=== PATIENT | female | born 1955 | race Caucasian/White ===

== ENCOUNTER 2017-07-04 11:21 | Day surgery (SDC) | payer OTHER ==
[~2017-07-04 11:21] MED LIST: Buffered Lidocaine 0.9% SYRIN* 5 ML/SYR SYRINGE INTRADERM ONE
[2017-07-04] MEDS ORDERED: Buffered Lidocaine 0.9% SYRIN* 5 ML/SYR SYRINGE ONE (11:25)
[2017-07-04] MEDS ORDERED: fentaNYL* 50 MCG/ML 2 ML VIAL (100 MCG VIAL) ONE (13:30)
[2017-07-04] MEDS ORDERED: Bupivacaine 0.25% SDV* 30 ML ONE (13:30)
[2017-07-04] MEDS ORDERED: Midazolam* 1 MG/ML 2 ML VIAL (2 MG) ONE (13:30)
[2017-07-04] MEDS ORDERED: Propofol* 10 MG/ML 20 ML BTL IV PUSH ONE (13:33)
[2017-07-04] MEDS ORDERED: Lidocaine 2% PF * 5 ML VIAL ONE (13:33)
[2017-07-04 14:44] VITALS: BP 126/82
--- NOTE | 2017-07-05 09:06 | OP ---
DATE OF OPERATION: 07/04/17 [facility] DATE OF : 57 SURGEON: Joe Cdoy MD [facility] COORDINATOR: JENNIFER Langley ANESTHESIOLOGIST: Dr. Navarro Neumann. ANESTHESIA: Local MAC. PRE-OP DIAGNOSIS: Right De Quervain's tenosynovitis. POST-OP DIAGNOSIS: Right De Quervain's tenosynovitis. OPERATIVE PROCEDURE: Right wrist De Quervain's release. INDICATIONS: Marie has had pretty significant pain related to De Quervain's tendinitis. We had talked about risks and benefits, she had wanted to proceed. ESTIMATED BLOOD LOSS: 2 mL. COMPLICATIONS: None. FINDINGS: As expected. DESCRIPTION OF PROCEDURE: Marie was seen in the preoperative holding area. The correct site, side, and procedure were identified. They came back to the operating room where the arm was prepped and draped in the usual fashion. A time-out was performed. I began by making a 2 cm transverse incision just proximal to the radial styloid. This was after the arm was exsanguinated with the Esmarch and the tourniquet inflated to 250 mmHg. Full-thickness flaps were raised right off the tendon sheath. The sensory nerve was gently retracted. The tendon sheath was incised longitudinally in line with the tendons on the dorsal aspect of the sheath. The release of the sheath was continued proximally and distally with the tenotomy scissors. There was an accessory compartment at the septum, where the accessory compartment was excised. I performed a slight tenosynovectomy as there was some tenosynovitis about the tendons. Once everything was nice and clean, we irrigated out the wound. Skin was closed with 3-0 Monocryl suture and Steri-Strips. I had infiltrated the wound with 0.25% plain Marcaine prior to making skin incision. The tourniquet was deflated and the hand pinked up immediately. Wound was dressed with 4x4s and francis bandage. [id number]/[facility] #: [id number] MTDD
== END 2017-07-04 14:43 | disposition home or self-care (01) ==
LOC: OR 11:21
PROVIDERS: ATTEND Orthopaedic Surgery Hand Surgery
DX: M65.4 Radial styloid tenosynovitis [de Quervain] (principal); M18.11 Unilateral primary osteoarthritis of first carpometacarpal joint, right hand; E78.5 Hyperlipidemia, unspecified; I10 Essential (primary) hypertension; M67.431 Ganglion, right wrist; Z87.891 Personal history of nicotine dependence; Z85.828 Personal history of other malignant neoplasm of skin
CPT/HCPCS: J2250; J2704; J3010

== ENCOUNTER 2017-09-02 12:45 | Emergency (ER) | payer OTHER ==
[2017-09-02] MEDS ORDERED: Acetaminophen TAB* 325 MG PO ONE (13:57)
--- NOTE | 2017-09-02 15:25 | RAD ---
INDICATION: Right rib injury. Fall. Pain COMPARISON: Chest x-ray April 20, 2015 TECHNIQUE: Multiple views of the ribs were obtained. FINDINGS: Bones: There is no evidence of acute rib fracture. LUNGS: The lungs are clear. There is no pneumothorax. Pleural spaces: There is no evidence of hemothorax. Other: None IMPRESSION: NO ACUTE RIB FRACTURE
--- NOTE | 2017-09-02 15:48 | ED ---
Adult Trauma - HPI Summary HPI Summary: Patient here with slip and fall earlier today. Reports she was walking on the icy sidewalk and lost her footing on the edge of the curb, fell onto her right side. Has rib pain here now which is worse with cough and deep breath. She denies numbness tingling weakness in her extremities or elsewhere. She also denies head injury, new neck pain, headache, nausea, photophobia, change in vision, nausea, vomiting. She is breathing well as long as she doesn't take a deep breath. She denies use of anticoagulants. Other than mild hypertension for which she treats with lisinopril, no other medical conditions to report. - History of Current Complaint Chief Complaint: EDChestWallPain Stated Complaint: FLANK PAIN Time Seen by Provider: 09/02/17 12:55 Hx Obtained From: Patient Pain Intensity: 7 - Allergy/Home Medications Allergies/Adverse Reactions: Allergies Allergy/AdvReac Type Severity Reaction Status Date / Time No Known Allergies Allergy Verified 06/29/17 12:34 PMH/Surg Hx/FS Hx/Imm Hx Previously Healthy: Yes Endocrine/Hematology History: Denies: Hx Anticoagulant Therapy, Hx Blood Disorders, Hx Diabetes, Hx Sickle Cell Disease, Hx Unexplained Bleeding Cardiovascular History: Reports: Hx Hypertension - takes lisinopril Denies: Hx Pacemaker/ICD Respiratory History: Denies: Hx Asthma History: Denies: Hx Dialysis, Hx Renal Disease Musculoskeletal History: Reports: Hx Arthritis - KNEES AND WRISTS, Hx Tendonitis - POSSIBLY RIGHT WRIST Denies: Hx Osteoporosis Sensory History: Reports: Hx Contacts or Glasses - READERS Denies: Hx Hearing Aid Opthamlomology History: Reports: Hx Contacts or Glasses - READERS Psychiatric History: Denies: Hx Panic Disorder - Cancer History Cancer Type, 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 Hx Anesthesia Reactions: Yes - [id number]- GAS FOR ANESTHESIA- NAUSEA Infectious Disease History: No Infectious Disease History: Denies: Traveled Outside the [place] in Last 30 Days - Family History Known Family History: Positive: None - Social History Occupation: Employed Full-time Lives: With Family Alcohol Use: None Hx Substance Use: No Substance Use Type: Reports: None Hx Tobacco Use: Yes - not currently Smoking Status (MU): Former Smoker Amount Used/How Often: UP TO 1 1/2 PPD X 20 YEARS Have You Smoked in the Last Year: No Review of Systems Constitutional: Negative Eyes: Negative ENT: Negative Cardiovascular: Negative Respiratory: Other - Rt side rib pain w/ cough, deep breath Gastrointestinal: Negative Positive: no symptoms reported Musculoskeletal: Negative Skin: Negative Neurological: Negative Psychological: Normal All Other Systems Reviewed And Are Negative: Yes Physical Exam Triage Information Reviewed: Yes Vital Signs On Initial Exam: Initial Vitals Temp Pulse Resp BP Pulse Ox 98 F 95 18 139/88 95 09/02/17 12:53 09/02/17 12:53 09/02/17 12:53 09/02/17 12:53 09/02/17 12:53 Vital Signs Reviewed: Yes Appearance: Positive: Well-Appearing, No Pain Distress - at rest - pain w/ movement of Rt arm away from body in rib area, Obese Skin: Positive: Warm, Skin Color Reflects Adequate Perfusion, Dry - No erythema or ecchymosis over affected areas, no skin breakdown Head/Face: Positive: Normal Head/Face Inspection Eyes: Positive: Normal, EOMI, RADHA - No photophobia ENT: Positive: Normal ENT inspection, Hearing grossly normal, Pharynx normal Dental: Negative: Dental Fracture @ Neck: Positive: Supple, Nontender Respiratory/Lung Sounds: Positive: Clear to Auscultation, Breath Sounds Present - No flail chest, no paradoxical chest movements - patient does report pain with deep breath on right side. Negative: Decreased Breath Sounds, Subcutaneous Emphysema, Stridor, Tracheal Deviation, Wheezes, Unable to speak in full sentences, Fatigue Cardiovascular: Positive: Normal, RRR, Pulses are Symmetrical in both Upper and Lower Extremities Abdomen Description: Positive: Nontender, Soft Bowel Sounds: Positive: Present Musculoskeletal: Positive: Strength/ROM Intact, Pain @ - Patient reports pain in right ribs with right shoulder abduction - full range of motion of phalanges wrist and elbow otherwise Neurological: Positive: Normal, Sensory/Motor Intact, Alert, Oriented to Person Place, Time, CN Intact II-III Psychiatric: Positive: Anxious Diagnostics - Vital Signs Vital Signs Temp Pulse Resp BP Pulse Ox 09/02/17 12:53 98 F 95 18 139/88 95 - Laboratory Lab Statement: Any lab studies that have been ordered have been reviewed, and results considered in the medical decision making process. Re-Evaluation - Re-Evaluation First Eval Change: Improved - Patient reports she is less sore and easier to move her arm status post acetaminophen Adult Trauma Course/Dx - Course Course Of Treatment: patient presents with mechanical fall earlier today landing on right side. She reports rib pain with deep breath and cough. Rib series report and the case no acute findings. Patient reports improvement of symptoms with acetaminophen. Will add Lidoderm pain patch in an effort to help over the next 12 hours if she cannot take ibuprofen due to her treatment of hypertension with lisinopril. Advised to implement supportive care and follow- up with PCP. Will return to emergency department if danger signs or symptoms present sooner. - Diagnoses Provider Diagnoses: Contusion of rib on right side, Fall from slipping on ice Discharge - Discharge Plan Condition: Stable Disposition: HOME Patient Education Materials: Rib Contusion (ED), Fall Prevention (ED) Forms: *Work Release Referrals: Mode Ferrer MD [Primary Care Provider] - Additional Instructions: You appear to have a right rib contusion. This may continue to be sore over the next few weeks. You may treat with ice alternating with heat and gentle stretches of your right arm at the shoulder. You may take acetaminophen for pain and use topical pain patches such as salonpas which may be purchased over- the-counter. Please follow up with her primary care physician next week. Call today to schedule. * If he developed fevers chills shortness of breath worsening of pain numbness tingling or weakness in your arm please return to the emergency department
[2017-09-02] MEDS ORDERED: Lidocaine PATCH 5%* 1 PATCH TRANSDERM ONE (15:50)
[2017-09-02 16:15] VITALS: BP 130/72
[2017-09-03] MEDS ORDERED: Lidocaine PATCH 5%* 1 PATCH TRANSDERM ONE (15:43)
== END 2017-09-02 16:14 | disposition home or self-care (01) ==
LOC: ED 12:45
DX: S20.211A Contusion of right front wall of thorax, initial encounter (principal); W00.0XXA Fall on same level due to ice and snow, initial encounter; Y93.01 Activity, walking, marching and hiking; Y92.480 Sidewalk as the place of occurrence of the external cause; Z87.891 Personal history of nicotine dependence
CPT/HCPCS: 99282; A9270-GY

== ENCOUNTER 2017-09-07 08:54 | Emergency (ER) | payer OTHER ==
[2017-09-07 09:00] VITALS: BP 170/115
[2017-09-07] MEDS ORDERED: Ketorolac INJ* 60 MG/2 ML VIAL IM ONE (09:30)
[2017-09-07] MEDS ORDERED: HYDROcodone/ACETAMIN 5-325 MG* 1 TAB PO ONE (09:30)
--- NOTE | 2017-09-07 10:23 | RAD ---
INDICATION: RIGHT axillary pain radiating to the back post fall 5 days ago. COMPARISON: April 28, 2015 TECHNIQUE: Dual energy PA and routine lateral views of the chest were obtained. REPORT: Trace fluid in the RIGHT minor fissure. The pleural spaces are otherwise clear. Negative for pneumothorax. Minimal prominence of the basilar interstitial markings. Negative for cardiomegaly. Mildly tortuous descending thoracic aorta. Unremarkable central pulmonary vasculature. No thoracic fractures evident. Multilevel mild thoracic degenerative spondylosis. Unremarkable soft tissue contours accounting for body habitus. Gallbladder fossa level surgical clips. IMPRESSION: Trace fluid in the RIGHT minor fissure. No visualized fracture or pneumothorax.
--- NOTE | 2017-09-07 17:40 | ED ---
Samira Felipe Nilda, scribed for Alan Rodriguez MD on 09/07/17 at 0934 . HPI Chest Pain - HPI Summary HPI Summary: This patient is a 62 year old F presenting to [facility] with a chief complaint of constant right rib pain that radiates to back since falling forward and landing on her chest a couple days ago. Pt states she went to ED and imaging was negative for fracture. The patient rates the pain 10/10 in severity. Symptoms aggravated by movement and deep inspiration, and alleviated by recumbent position. Patient reports cough and dyspnea secondary to pain. She denies N/V. Patient states she slept sitting up last night due to pain. - History of Current Complaint Chief Complaint: EDChestWallPain Time Seen by Provider: 09/07/17 09:22 Hx Obtained From: Patient Onset/Duration: Started Days Ago, Still Present Timing: Constant Current Severity: Severe Pain Intensity: 10 Chest Pain Location: Right Lateral Chest Pain Radiates: Yes Chest Pain Radiates To:: Back Aggravating Factor(s): Movement, Deep Breaths Alleviating Factor(s): Other: - recumbent position Associated Signs and Symptoms: Positive: Other: - cough and dyspnea secondary to pain. She denies N/V - Allergy/Home Medications Allergies/Adverse Reactions: Allergies Allergy/AdvReac Type Severity Reaction Status Date / Time No Known Allergies Allergy Verified 06/29/17 12:34 PMH/Surg Hx/FS Hx/Imm Hx Endocrine/Hematology History: Denies: Hx Anticoagulant Therapy, Hx Blood Disorders, Hx Diabetes, Hx Sickle Cell Disease, Hx Unexplained Bleeding Cardiovascular History: Reports: Hx Hypertension - takes lisinopril Denies: Hx Pacemaker/ICD Respiratory History: Denies: Hx Asthma History: Denies: Hx Dialysis, Hx Renal Disease Musculoskeletal History: Reports: Hx Arthritis - KNEES AND WRISTS, Hx Tendonitis - POSSIBLY RIGHT WRIST Denies: Hx Osteoporosis Sensory History: Reports: Hx Contacts or Glasses - READERS Denies: Hx Hearing Aid Opthamlomology History: Reports: Hx Contacts or Glasses - READERS Psychiatric History: Denies: Hx Panic Disorder - Cancer History Cancer Type, 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 Hx Anesthesia Reactions: Yes - [id number]- GAS FOR ANESTHESIA- NAUSEA Infectious Disease History: No Infectious Disease History: Denies: Traveled Outside the [place] in Last 30 Days - Family History Known Family History: Positive: None - reviewed and noncontributory - Social History Alcohol Use: None Hx Substance Use: No Substance Use Type: Reports: None Hx Tobacco Use: Yes - not currently Smoking Status (MU): Former Smoker Amount Used/How Often: UP TO 1 1/2 PPD X 20 YEARS Have You Smoked in the Last Year: No Review of Systems Positive: Cough, Other - dypnea secondary to pain Negative: Vomiting, Nausea Positive: Other - right rib pain that radiates to back All Other Systems Reviewed And Are Negative: Yes Physical Exam - Summary Physical Exam Summary: VITAL SIGNS: Reviewed. GENERAL: Patient is a well-developed and nourished female who is lying comfortable in the stretcher. Patient is not in any acute respiratory distress. HEAD AND FACE: No signs of trauma. No ecchymosis, hematomas or skull depressions. No sinus tenderness. EYES: PERRLA, EOMI x 2, No injected conjunctiva, no nystagmus. EARS: Hearing grossly intact. Ear canals and tympanic membranes are within normal limits. MOUTH: Oropharynx within normal limits. NECK: Supple, trachea is midline, no adenopathy, no JVD, no carotid bruit, no c- spine tenderness, neck with full ROM. CHEST: Symmetric, Tender right rib cage area around the mid axillary line btwn 4ths and 5th ribs LUNGS: Clear to auscultation bilaterally. No wheezing or crackles. CVS: Regular rate and rhythm, S1 and S2 present, no murmurs or gallops appreciated. ABDOMEN: Soft, non-tender. No signs of distention. No rebound no guarding, and no masses palpated. Bowel sounds are normal. EXTREMITIES: FROM in all major joints, no edema, no cyanosis or clubbing. NEURO: Alert and oriented x 3. No acute neurological deficits. Speech is normal and follows commands. SKIN: Dry and warm Triage Information Reviewed: Yes Vital Signs On Initial Exam: Initial Vitals Temp Pulse Resp BP Pulse Ox 97.5 F 137 22 170/115 94 09/07/17 08:56 09/07/17 08:56 09/07/17 08:56 09/07/17 08:56 09/07/17 08:56 Vital Signs Reviewed: Yes Diagnostics - Vital Signs Vital Signs Temp Pulse Resp BP Pulse Ox 09/07/17 08:56 97.5 F 137 22 170/115 94 - Laboratory Lab Statement: Any lab studies that have been ordered have been reviewed, and results considered in the medical decision making process. - Radiology CXR Radiology Interpretation Completed By: Radiologist - CXR, per radiologist, reveals trace fluid in the RIGHT minor fissure. No visualized fracture or pneumothorax. Dr. Rodriguez has reviewed this radiology report. Chest Pain Course/Dx - Course Assessment/Plan: This patient is a 62 year old F presenting to [facility] with a chief complaint of constant right rib pain that radiates to back since falling forward and landing on her chest a couple days ago. Pt states she went to ED and imaging was negative for fracture. The patient rates the pain 10/10 in severity. Symptoms aggravated by movement and deep inspiration, and alleviated by recumbent position. Patient reports cough and dyspnea secondary to pain. She denies N/V. Patient states she slept sitting up last night due to pain. CXR, per radiologist, reveals trace fluid in the RIGHT minor fissure. No visualized fracture or pneumothorax. Dr. Rodriguez has reviewed this radiology report. In the ED course, the pt was given [place] and Toradol for the pain and their symptoms improved. XR negative for acute pathology. I discussed findings with the pt and need to follow up with PCP. Pt was given an incentive spirometer. - Chest Pain Differential Diagnosis/HQI/PQRI: Chest Wall, Lower Respiratory Infection - Diagnoses Provider Diagnoses: Rib pain on right side Discharge - Discharge Plan Condition: Stable Disposition: HOME Prescriptions: Hydrocodone/Acetaminophen [Atoka 5-325 mg] 1 tab PO Q6H PRN #12 tab MDD 4 PRN Reason: Pain Ibuprofen TAB* [Motrin TAB* 600 MG] 600 mg PO Q8H PRN #30 tab PRN Reason: Pain Patient Education Materials: Rib Contusion (ED) Referrals: Mode Ferrer MD [Primary Care Provider] - 3 Days Additional Instructions: Use incentive spirometer. RETURN TO THE EMERGENCY DEPARTMENT FOR CHANGING OR WORSENING SYMPTOMS. The documentation as recorded by the Samira mandujano Nilda accurately reflects the service I personally performed and the decisions made by Michael gonzales Walter, MD.
== END 2017-09-07 12:15 | disposition home or self-care (01) ==
LOC: ED 08:54
DX: R07.81 Pleurodynia (principal); R05 Cough; R06.00 Dyspnea, unspecified
CPT/HCPCS: 71046; 96372; 99282; J1885

== ENCOUNTER 2018-10-14 22:59 | Emergency (ER) | payer OTHER ==
--- OUTSIDE RECORDS SUMMARY | 2018-10-14 23:16 | XMS REPORT | Continuity of Care Document ---
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 Group Name: [place] [address] PayID: [id number] Advance Directives Description No Information Available Problems Date Description Provider Status Onset: 06/04/2015 Backache Mode Ferrer M.D. Active Onset: 04/29/2015 Chest pain Mode Ferrer M.D. Active Onset: 11/23/2013 Essential hypertension Judith Swan Active Onset: 05/25/2011 Low back pain Cy Pena M.D. 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 [employer] Tobacco Use Start: Unknown End: Former Cigarette Smoker Unknown ETOH Use Rare Tobacco Use Start: Unknown End: Patient is a former Unknown smoker Exercise Exercises rarely, wants Type/Frequency Current to start walking Allergies, Adverse Reactions, Alerts Date Description Reaction Status Severity Comments 06/05/2015 Methylprednisolone severe headache Active 05/25/2011 NKDA Inactive Medications Medication Date Status Form Strength Qnty SIG Indications Ordering Provider Advair Diskus 10/13 Active Aerosol 100-50mcg 60units 1 puff R05 /Dose twice a Lili, day, MAILROOM MESSENGER rinse mouth and throat after use Benzonatate 10/13 Active Capsules 100mg 45caps 1 by R0 mouth Lili, three MAILROOM MESSENGER times a day as needed coughing Fluticasone 10/13 Active Suspension 50mcg/Act 1bottle 2 sprays Propionate each Lili, nostril MAILROOM MESSENGER daily Ibuprofen 10/13 Active Tablets 800mg 60tabs take 1 .03 tablet Lili, by mouth MAILROOM MESSENGER two times daily with food maximum daily dose of 2 per day Lisinopril-Wacissa 04/09 Active Tablets 10-12.5mg 90tabs take 1 I10 Emily chlorothiazide tablet Evelio, by mouth MAILROOM MESSENGER one time daily Ibuprofen Active Tablets 200mg 1 po bid prn Tramadol HCL 09/15 Hx Tablets 50mg 60tabs take one M94.0 Mode . tablet Nabil, - by mouth M.D. 10/13 every hours as needed for pain -- maximum daily dose of 4 per day Note No Work 08/24 Hx marie A09 Mode A. is to Nabil, - return M.D. 04/26 to work /2017 on 10/03/17 with no restrict ions Ranitidine HCL 08/24 Hx Tablets 150mg 45tabs take 1 A09 tablet Evelio, - by mouth MAILROOM MESSENGER 10/13 one two times daily Thumb Spica 04/13 Hx 1units 1 large M65.4 Mode AEllis Splint or Chris Ferrer medium M.D. 05/04 wear except to sleep Physical Therapy 04/13 Hx treatmen M65.4 Mode AEllis /2016 t and Nabil - evaluati M.D. 04/25 on wrist pain Note For Work 10/08 Hx November 724.2 Mode A. return Nabil, - to work M.D. 10/0910/13/15 Note For Work 09/24 Hx please M54.5 Mode A. excuse Nabil, - from M.D. 10/05 work 09/18/15 until further notice. Gabapentin 06/05 Hx Capsules 100mg 90caps take one M54.9 Mode A. capsule Nabil, - by mouth M.D. 09/20 times a day Methylprednisolo 06/04 Hx Tablets 4mg 1pack take as M54.9 Mode AEllis ne (Abdulaziz) /2014 directed Nabil, - M.D. 06/05 Physical Therapy 06/04 Hx treatmen M54.9 Mode AEllis t and Nabil, - evaluati M.D. 06/16 on back pain Calcipotriene/Be 01/08 Hx Ointment 0.005-0.0 60gm apply 782.9 oMde Mcgovern tamethasone 64% once a [place], Dipropionate - day as M.D. 04/29 Meclizine HCL 11/23 Hx Tablets 12.5mg 30tabs take 1-2 386.11 tid prn Juan, - for Afnp-C 12/02 dizzines s Skelaxin 07/06 Hx Tablets 800mg 30tabs 1 by 724.3 Christiano Harris /2012 mouth M.D. - three 11/23 times day as needed Hydrocodone/Acet 07/06 Hx Tablets 5-325mg 30tabs 1 by 724.3 Crhistiano Harris aminophen /2012 mouth M.D. - three 11/23 times a day as needed pain Fluocinolone 11/21 Hx Cream 0.025% 15gm apply to 782.9 Kirsten Acetonide affected Juan - areas Afnp-C 02/16 right leg daily x 2 weeks Pantoprazole 01/[address] 40mg 30tabs 1 po qd 530.81 Emily Sodium /2011 Evelio, - MAILROOM MESSENGER 05/04 Naproxen 05/25 Hx Tablets 500mg 30tabs 1 po bid 724.2 Benoit . prn Chris Pena M.D. 07/23 Note For Work 05/25 Hx please 724.2 Mode A. excuse Nabil, - from M.D. 05/0505/05/12 Vicodin 10 Hx Tablets 5-500mg 40tabs 1 to 2 724.2 Benoit A. po every Becky, - six M.D. prn. Cyclobenzaprine 05/25 Hx Tablets 10mg 10tabs take 1 724.2 Benoit A. HCL tablet Becky, - by mouth M.D. 07/23 evening if needed for muscle spasm Lisinopril/Wacissa 04/22 Hx Tablets 10-12.5mg 90tabs Take one 401.9 thi tablet Evelio, - by mouth MAILROOM MESSENGER 04/09 one time daily Nexium 08/05 Hx Capsules 40mg samples [address] Fraser, - MAILROOM MESSENGER 04/22 Kapidex 07/22 Hx Capsules 60mg samples [address] Fraser, - MAILROOM MESSENGER 08/05 Lisinopril/Wacissa 06/17 Hx Tablets 20-12.5mg 30tabs 1 po qd 401.9 Emily chlorothiazide Evelio, - MAILROOM MESSENGER 04/22 Lisinopril/Wacissa 04/08 Hx Tablets 10-12.5mg 30tabs 1 po qd 401.9 Emily chlorothiazide Evelio - MAILROOM MESSENGER 06/17 Physical Therapy 08/29 Hx Evaluate 719.47 Mode A. And Nabil - Treat M.DEllis 04/08 Ankle Proprioc eptive Therapy. Relafen 08/27 Hx Tablets 500mg 30tabs 1 po bid 719.47 Mode A. prn pain Chris Ferrer M.D. 09/06 Lisinopril 01/09 Hx Tablets 10mg 30tabs 1 po qd5 401.9 Evelio - MAILROOM MESSENGER 04/08 Hydrochlorothiaz 01/09 Hx Tablets 25mg 30tabs 1 po qd 401.9 Emily jacquelyn Evelio, - MAILROOM MESSENGER 04/08 Pravastatin 01/09 Hx Tablets 20mg 30tabs 1po qd 272.4 Emily Sodium Evelio, - MAILROOM MESSENGER 04/08 Immunizations Description No Information Available Vital Signs Date Vital Result Comment 10/13/2018 9:35am BP Systolic 144 mmHg BP Diastolic 78 mmHg Heart Rate 80 /min Body Temperature 97.7 F Respiratory Rate 22 /min O2 % BldC Oximetry 98 % Ra Weight 261.00 lb 04/26/2018 10:57am BP Systolic 112 mmHg BP Diastolic 76 mmHg Heart Rate 84 /min Body Temperature 97.2 F Respiratory Rate 17 /min Height 62.5 inches 5'2.50" Weight 256.00 lb BMI (Body Mass Index) 46.1 kg/m2 09/15/2017 5:22pm BP Systolic 138 mmHg BP Diastolic 80 mmHg Heart Rate 76 /min Body Temperature 99.1 F Respiratory Rate 16 /min O2 % BldC Oximetry 97 % Height 62.5 inches 5'2.50" Weight 242.00 lb BMI (Body Mass Index) 43.6 kg/m2 08/24/2017 3:55pm BP Systolic 124 mmHg BP Diastolic 82 mmHg Heart Rate 68 /min Body Temperature 98.4 F Respiratory Rate 18 /min Height 62.5 inches 5'2.50" Weight 253.00 lb BMI (Body Mass Index) 45.5 kg/m2 05/16/2017 2:57pm BP Systolic 140 mmHg BP Diastolic 80 mmHg Heart Rate 88 /min Body Temperature 98.1 F Respiratory Rate 16 /min Height 62.5 inches 5'2.50" Weight 249.12 lb BMI (Body Mass Index) 44.8 kg/m2 04/13/2017 4:10pm BP Systolic 130 mmHg BP Diastolic 70 mmHg Heart Rate 74 /min Body Temperature 97.9 F Height 62.5 inches 5'2.50" Weight 248.00 lb BMI (Body Mass Index) 44.6 kg/m2 06/16/2016 1:24pm BP Systolic 130 mmHg BP Diastolic 80 mmHg Heart Rate 96 /min Body Temperature 98.5 F Respiratory Rate 16 /min Height 62.5 inches 5'2.50" Weight 250.00 lb BMI (Body Mass Index) 45.0 kg/m2 03/23/2016 4:36pm BP Systolic 158 mmHg BP Diastolic 90 mmHg Heart Rate 88 /min Body Temperature 97.5 F Respiratory Rate 18 /min Height 62.5 inches 5'2.50" Weight 248.00 lb BMI (Body Mass Index) 44.6 kg/m2 10/22/2015 9:57am BP Systolic 150 mmHg BP Diastolic 80 mmHg Heart Rate 116 /min Body Temperature 98.3 F Respiratory Rate 16 /min Height 62.5 inches 5'2.50" Weight 254.00 lb BMI (Body Mass Index) 45.7 kg/m2 10/06/2015 10:41am BP Systolic 150 mmHg BP Diastolic 100 mmHg Heart Rate 88 /min Body Temperature 98.4 F Respiratory Rate 16 /min Height 62.5 inches 5'2.50" Weight 250.00 lb BMI (Body Mass Index) 45.0 kg/m2 09/20/2015 10:08am BP Systolic 166 mmHg BP Diastolic 70 mmHg Heart Rate 96 /min Body Temperature 98.7 F Respiratory Rate 16 /min Height 62.5 inches 5'2.50" Weight 251.25 lb BMI (Body Mass Index) 45.2 kg/m2 06/04/2015 11:27am BP Systolic 140 mmHg BP Diastolic 80 mmHg Heart Rate 92 /min Body Temperature 97.6 F Respiratory Rate 20 /min Height 62.5 inches 5'2.50" Weight 248.00 lb BMI (Body Mass Index) 44.6 kg/m2 04/29/2015 11:02am BP Systolic 144 mmHg BP Diastolic 84 mmHg Heart Rate 84 /min Body Temperature 97.8 F Respiratory Rate 16 /min Height 62.5 inches 5'2.50" Weight 249.00 lb BMI (Body Mass Index) 44.8 kg/m2 09/09/2014 9:10am BP Systolic 130 mmHg BP Diastolic 80 mmHg Heart Rate 76 /min Body Temperature 97.3 F Respiratory Rate 16 /min Height 62.5 inches 5'2.50" Weight 252.00 lb BMI (Body Mass Index) 45.4 kg/m2 06/18/2014 11:40am BP Systolic 142 mmHg BP Diastolic 88 mmHg Heart Rate 84 /min Body Temperature 97.1 F Respiratory Rate 16 /min Height 62.5 inches 5'2.50" Weight 248.00 lb BMI (Body Mass Index) 44.6 kg/m2 01/08/2014 8:58am BP Systolic 152 mmHg BP Diastolic 96 mmHg Heart Rate 84 /min Body Temperature 97.2 F Respiratory Rate 16 /min Height 62.5 inches 5'2.50" Weight 244.00 lb BMI (Body Mass Index) 43.9 kg/m2 Right Visual Acuity Distance 20/30 Left Visual Acuity Distance 20/25 11/23/2013 8:09am BP Systolic 140 mmHg BP Diastolic 70 mmHg Heart Rate 88 /min Body Temperature 97.3 F Respiratory Rate 16 /min Height 62.5 inches 5'2.50" Weight 244.00 lb BMI (Body Mass Index) 43.9 kg/m2 07/06/2013 10:51am BP Systolic 146 mmHg BP Diastolic 90 mmHg Heart Rate 112 /min Body Temperature 96.9 F Height 62.5 inches 5'2.50" Weight 237.50 lb BMI (Body Mass Index) 42.7 kg/m2 02/02/2013 8:40am BP Systolic 130 mmHg BP Diastolic 70 mmHg Heart Rate 72 /min Body Temperature 96.9 F Respiratory Rate 18 /min Height 62.5 inches 5'2.50" Weight 236.00 lb BMI (Body Mass Index) 42.5 kg/m2 11/21/2012 3:54pm BP Systolic 120 mmHg BP Diastolic 90 mmHg Heart Rate 72 /min Body Temperature 98.2 F Respiratory Rate 16 /min Height 62.5 inches 5'2.50" Weight 238.00 lb BMI (Body Mass Index) 42.8 kg/m2 05/04/2012 7:01pm BP Systolic 124 mmHg BP Diastolic 90 mmHg Heart Rate 102 /min Body Temperature 98.9 F Height 62.5 inches 5'2.50" Weight 231.00 lb BMI (Body Mass Index) 41.6 kg/m2 01/24/2012 7:18pm BP Systolic 120 mmHg BP Diastolic 80 mmHg Heart Rate 80 /min Body Temperature 98.2 F Height 62.5 inches 5'2.50" Weight 235.00 lb BMI (Body Mass Index) 42.3 kg/m2 07/23/2011 11:26am BP Systolic 124 mmHg BP Diastolic 90 mmHg Heart Rate 84 /min Body Temperature 97.7 F Height 62.5 inches 5'2.50" Weight 226.00 lb BMI (Body Mass Index) 40.7 kg/m2 05/31/2011 11:08am BP Systolic 120 mmHg BP Diastolic 80 mmHg Heart Rate 80 /min Body Temperature 97.8 F Respiratory Rate 16 /min Height 62.5 inches 5'2.50" Weight 228.00 lb BMI (Body Mass Index) 41.0 kg/m2 05/25/2011 2:52pm BP Systolic 120 mmHg BP Diastolic 88 mmHg Heart Rate 80 /min Body Temperature 98.1 F Height 62.5 inches 5'2.50" Weight 226.00 lb BMI (Body Mass Index) 40.7 kg/m2 04/22/2011 4:24pm BP Systolic 144 mmHg BP Diastolic 102 mmHg Heart Rate 88 /min Body Temperature 97.9 F Height 62.5 inches 5'2.50" Weight 221.00 lb BMI (Body Mass Index) 39.8 kg/m2 08/05/2010 3:54pm BP Systolic 140 mmHg BP Diastolic 92 mmHg Heart Rate 72 /min Body Temperature 97.2 F Respiratory Rate 15 /min Height 62.5 inches 5'2.50" Weight 233.00 lb BMI (Body Mass Index) 41.9 kg/m2 07/22/2010 3:54pm BP Systolic 150 mmHg BP Diastolic 80 mmHg Heart Rate 90 /min Body Temperature 98.4 F Height 62.5 inches 5'2.50" Weight 227.00 lb BMI (Body Mass Index) 40.9 kg/m2 06/17/2010 4:20pm BP Systolic 142 mmHg BP Diastolic 90 mmHg Heart Rate 80 /min Body Temperature 98.4 F Respiratory Rate 16 /min Height 62.5 inches 5'2.50" Weight 224.00 lb BMI (Body Mass Index) 40.3 kg/m2 04/08/2010 2:08pm BP Systolic 150 mmHg BP Diastolic 100 mmHg Heart Rate 90 /min Body Temperature 98.1 F Height 62.5 inches 5'2.50" Weight 218.00 lb BMI (Body Mass Index) 39.2 kg/m2 08/27/2009 3:32pm BP Systolic 138 mmHg BP Diastolic 90 mmHg Heart Rate 80 /min Body Temperature 97.6 F Respiratory Rate 16 /min Height 62.5 inches 5'2.50" Weight 222.00 lb BMI (Body Mass Index) 40.0 kg/m2 02/06/2009 9:02am BP Systolic 110 mmHg BP Diastolic 84 mmHg Heart Rate 68 /min Body Temperature 98.8 F Weight 218.00 lb 01/09/2009 1:57pm BP Systolic 132 mmHg BP Diastolic 88 mmHg Heart Rate 76 /min Height 62.5 inches 5'2.50" Weight 215.00 lb BMI (Body Mass Index) 38.7 kg/m2 Results Test Date Facility Test Result H/L Range Note Laboratory test 04/26/2018 [facility] Lipase 34 U/L 14-72 1 finding [address] [place] [address] (607)- - Ua - Micro (Fma) 04/26/2018 [facility] Appearance clear (607)- - Color yellow Glucose, Urine (Fma/CMC/CTX) negative Bilirubin negative Ketones negative SP Grav 1.010 Blood negative PH 5.0 Protein negtative Urobil 0.2 Nitrite negative Leukocytes (Fma/CMC/Centrex) ssa negative WBC (Fma,Centrex) 8-10 RBC 0 Mucus (Fma/CBC/Centrex) small /Lpf Epith occ /Lpf Bacteria 1++ /Hpf Amorphous (Fma/CMC/Centrex) 0 /Lpf Crystals, Fluid (Fma/CMC/CTX) 0 Comprehensive Metabolic 04/26/2018 [facility] (a) Sodium 137 mEq/L 134-149 Prof Potassium 4.4 mEq/L 3.6-5.5 Chloride 100 mEq/L 94-112 Carbon Dioxide 23 mEq/L 21-32 Glucose 135 mg/dL High 70-105 BUN 14 mg/dL 6-26 Creatinine 0.9 mg/dL 0.6-1.4 BUN/Creat Ratio 15.6 CALC 8.0-36.0 Calcium 10.0 mg/dL 8.6-10.2 Total Protein 6.6 g/dL 6.4-8.3 Albumin 4.4 g/dL 3.8-5.5 Globulin 2.2 g/dL 2.0-4.8 A/G Ratio 2.0 CALC 0.6-2.3 Alk. Phosphatase 88 U/L 30-110 Alt (SGPT) 19 U/L 7-35 Ast (Sgot) 17 U/L 5-34 Total Bilirubin 0.5 mg/dL 0.2-1.3 GFR Non- >60 ml/min/1.73m^ >=60 GFR >60 ml/min/1.73m^ >=60 CBC Electronic Fma 04/26/2018 Tan Lia ([facility]) WBC 8.2 x10^3/UL 4.0- 10.0 RBC 5.03 x10^6/UL 3.93-6.00 HGB 15.3 g/dL 12.0-17.0 HCT 45 % 35-50 MCV 89.9 fL 80.0-95.0 MCH 30.4 pg 25.6-32.2 MCHC 33.8 g/dL 32.2-36.0 RDW-CV 12.8 % 11.6-14.4 PLT 240 x10^3/UL 163-400 MPV 9.6 fL 9.4-12.4 Johnie# 5.39 x10^3/UL 1.56-6.13 Lymph# 2.05 x10^3/UL 1.18-3.74 Cochran# 0.49 x10^3/UL 0.24-0.82 Eos # 0.2 x10^3/UL 0.0-0.5 Baso # 0.06 x10^3/UL 0.01-0.08 Johnie% 65.6 % 34.0-70.0 Lymph % 24.9 % 20.0-52.0 Cochran% 6.0 % 5.0-12.0 Eos% 2.2 % 0.7-7.0 Baso% 0.7 % 0.1-1.2 Laboratory test 04/26/2018 Tan Fitzgerald ([facility]) Amylase, Serum 76 U/L 20 -105 finding Laboratory test 08/27/2016 [facility] Surgical SEE RESULT 2, 3 finding Pathology BELOW Laboratory test 06/11/2016 [facility] Surgical SEE RESULT 4, 5 finding Pathology BELOW Laboratory test 04/28/2015 [facility] Troponin I 0.00 ng/mL N <0.03 6 finding Laboratory test 04/28/2015 [facility] TSH (Thyroid 3.24 ?IU/mL N 0.34-5.60 finding Stim Horm) Urinalysis 04/28/2015 [facility] Urine Color Straw N Profile Urine Appearance Cloudy N Urine Specific [place] 1.008 Low 1.010-1.030 Urine pH 5.0 N 5-9 Urine Urobilinogen Negative N Negative Urine Ketones Negative N Negative Urine Protein Negative N Negative Urine Leukocytes Negative N Negative Urine Blood Negative N Negative Urine Nitrite Negative N Negative Urine Bilirubin Negative N Negative Urine Glucose Negative N Negative CBC Auto Diff 04/28/2015 [facility] White Blood Count 11.5 10^3/uL High 4.8- 10.8 Red Blood Count 5.30 10^6/uL N 4.0-5.4 Hemoglobin 16.2 g/dL High 12.0-16.0 Hematocrit 49 % High 35-47 Mean Corpuscular Volume 92 fL N 80-97 Mean Corpuscular Hemoglobin 31 pg N 27-31 Mean Corpuscular HGB Conc 33 g/dL N 31-36 Red Cell Distribution Width 13 % N 10.5-15 Platelet Count 249 10^3/uL N 150-450 Mean Platelet Volume 8 um3 N 7.4-10.4 Abs Neutrophils 8.7 10^3/uL High 1.5-7.7 Abs Lymphocytes 1.8 10^3/uL N 1.0-4.8 Abs Monocytes 0.7 10^3/uL N 0-0.8 Abs Eosinophils 0.2 10^3/uL N 0-0.6 Abs Basophils 0.1 10^3/uL N 0-0.2 Abs Nucleated RBC 0.01 10^3/uL N Granulocyte % 75.8 % N 38-83 Lymphocyte % 15.9 % Low 25-47 Monocyte % 6.0 % N 1-9 Eosinophil % 1.4 % N 0-6 Basophil % 0.9 % N 0-2 Nucleated Red Blood Cells % 0.1 N Inr/Protime 04/28/2015 [facility] Inr 1.08 High 0.78-1.07 Laboratory test 04/28/2015 [facility] B Type Natriuretic 18 pg/mL N 7 finding Peptide Comp Metabolic Panel 04/28/2015 [facility] Sodium 132 mmol/L Low 133-145 Potassium 3.5 mmol/L N 3.5-5.0 Chloride 100 mmol/L Low 101-111 Co2 Carbon Dioxide 25 mmol/L N 22-32 Anion Gap 7 mmol/L N 2-11 Glucose 108 mg/dL High 70-100 Blood Urea Nitrogen 22 mg/dL N 6-24 Creatinine 0.95 mg/dL N 0.51-0.95 BUN/Creatinine Ratio 23.2 High 8-20 Calcium 10.5 mg/dL High 8.6-10.3 Total Protein 7.3 g/dL N 6.4-8.9 Albumin 4.4 g/dL N 3.2-5.2 Globulin 2.9 g/dL N 2-4 Albumin/Globulin Ratio 1.5 N 1-3 Total Bilirubin 0.40 mg/dL N 0.2-1.0 Alkaline Phosphatase 79 U/L N 34-104 Alt 15 U/L N 7-52 Ast 16 U/L N 13-39 Egfr Non- 60.2 N >60 Egfr 77.4 N >60 8 Laboratory test finding 04/28/2015 [facility] Magnesium 2.8 mg/dL High 1.9-2.7 Creatine Kinase 101 U/L N 10-223 Troponin I 0.00 ng/mL N <0.03 9 CKMB 04/28/2015 [facility] CKMB ng/mL 6.5 ng/mL High 0.6-6.3 Surgical 07/30/2014 [facility] S RUN DATE: 08/02/ <SEE NOTE> Complete Blood 06/18/2014 Maddox Lia (Fma) WBC 9.8 x10^3/UL High 3.6- 9.6 Count RBC 5.26 x10^6/UL 3.90-5.70 HGB 16.5 g/dL 12.1-17.2 HCT 49 % 36-50 MCV 92.0 fL 82.2-97.4 MCH 31.4 pg 27.6-33.3 MCHC 34.1 g/dL 33.0-35.5 RDW 12.1 % 11.6-13.7 PLT 256 x10^3/UL 150-400 MPV 7.2 fL Low 7.4-10.4 Gran # 6.9 x10^3/UL 1.5-7.2 Lymph# 2.6 x10^3/UL 0.7-4.9 Cochran# 0.3 x10^3/UL 0.1-0.9 Gran % 69.6 % 42.2-75.2 Lymph % 26.7 % 20.5-51.1 Cochran% 3.7 % 1.7-9.3 Celiac Panel 06/18/2014 [facility] Immunoglobulin A 225 mg/dL N 61 - 356 11 Tissue Transglutaminase IgA Ab <1.2 U/mL N 12 Celiac Interpretation See Comment N 13 Laboratory test 01/08/2014 [facility] Cytology RUN DATE: finding <SEE NOTE> HPV High Risk 01/08/2014 [facility] Human Papillomavirus See Comment 15 Source HPV High Risk Type 16, PCR Negative Negative HPV High Risk Type 18, PCR Negative Negative HPV Other Risk types Negative Negative 16 Lipid Profile 01/08/2014 [facility] (a) Cholesterol 225 mg/dL High 120-200 Triglycerides 259 mg/dL High 30-200 HDL Cholesterol 49 mg/dL 30-85 LDL (Calculated) 124 CALC 0-129 VLDL Cholesterol 52 mg/dL High 0-50 HDL Risk Factor 4.6 CALC High 0.0-4.4 Comprehensive Metabolic 01/08/2014 [facility] (a) Sodium 138 mEq/L 134-149 Prof Potassium 4.1 mEq/L 3.6-5.5 Chloride 101 mEq/L 94-112 Carbon Dioxide 26 mEq/L 21-32 Glucose 117 mg/dL High 70-105 17 BUN 21 mg/dL 6-26 Creatinine 1.0 mg/dL 0.6-1.4 BUN/Creat Ratio 21.0 CALC 8.0-36.0 Calcium 10.6 mg/dL High 8.6-10.2 18 Total Protein 7.8 g/dL 6.3-8.1 Albumin 4.5 g/dL 3.8-5.5 Globulin 3.3 g/dL 2.0-4.8 A/G Ratio 1.4 CALC 0.6-2.3 Alk. Phosphatase 91 U/L 30-110 Alt (SGPT) 18 U/L 7-35 Ast (Sgot) 13 U/L 5-34 Total Bilirubin 0.4 mg/dL 0.2-1.3 Laboratory test finding 01/08/2014 Tan Fitzgerald ([facility]) Vitamin D25 32 30-100 19 LDL, Direct 123 mg/dL 0-130 Laboratory test 01/08/2014 [facility] Hemoglobin A1c 5.6 % 4.1-5.7 finding (607)- - (Fma/CMC,CX) Sed Rate (Fma/CMC/Centrex) 7mm Marisa Panel--LD ([facility]) 01/08/2014 [facility] Rheumatoid Factor <15 IU/mL <15 20 Anti Double Stranded Dna Negative Negative 21 Marisa (Anti-Nuclear AB) Screen Negative Negative 22 U1 ORDER DETAILER IgG Autoabs <0.2 U 23 Hla B27 01/08/2014 [facility] Hla B27 Negative 24 Hla B27 Interp See Comment 25 Ssa/SSB Abs Igg 01/08/2014 [facility] SS-A/Ro Antibody <0.2 U 26 SS-B/La Antibody <0.2 U 27 Laboratory test 01/08/2014 [facility] C Reactive 5.94 mg/L High < 5.00 28 finding Protein Comprehensive 02/02/2013 Maddox Flora ([facility]) Albumin 4.7 g/dL 3.8-5.5 Metabolic Prof Alk. Phos. 74 U/L 30-110 Alt (SGPT) 18 U/L 7-35 Ast (Sgot) 17 U/L 5-34 BUN 22 mg/dL 6-26 Calcium 10.1 mg/dL 8.6-10.2 Chloride 98 mEq/L 94-112 Creatinine 1.2 mg/dL 0.6-1.4 Carbon Dioxide 27 mEq/L 21-32 Glucose 122 mg/dL High 70-105 29 Sodium 138 mEq/L 134-149 Total Bilirubin 0.4 mg/dL 0.2-1.3 Total Protein 6.9 g/dL 6.3-8.1 Potassium 4.7 mEq/L 3.6-5.5 Globulin 2.3 g/dL 2.0-4.8 A/G Ratio 2.0 Calc 0.6-2.3 BUN/Creat Ratio 18.2 Calc 8.0-36.0 Laboratory test 02/02/2013 Maddox Flora ([facility]) Free T4 1.02 ng/dL 0.75- 1.54 finding TSH 2.40 mIU/L 0.50-6.00 Lipid Profile 02/02/2013 Maddox Flora ([facility]) Cholesterol 212 mg/dL High 120-200 HDL 50 mg/dL 30-85 Triglycerides 234 mg/dL High 30-200 HDL Risk Factor 4.3 CALC 0.0-4.4 LDL (Calculated) 115 CALC 0-129 VLDL (Calculated) 47 mg/dL 0-50 Vitamin D, 25 Hydroxy 02/02/2013 [facility] 25-Hydroxy Vitamin D2 <4.0 ng/mL 25-Hydroxy Vitamin D3 32 ng/mL 25-Hydroxy Vitamin D Total 32 ng/mL 30 CBC Electronic (a) 02/02/2013 [facility] WBC 6.9 3.6-9.6 (607)- - RBC 5.11 3.90-5.70 Hemoglobin (Fma/CMC/CTX) 15.5 g/dL 12.1 - 17.2 Hematocrit (Fma/CMC/CTX) 46.7 % 36.1 - 50.3 Platelets 250 10^3/ul 150-400 Lymph% 30.1 20.5-51.1 Mixed% 6.8 Neutrophils % 63.1 Mean Corpuscular Vol 91 82.2-97.4 Mean Corpuscular Hemoglobin 30.2 27.6-33.3 Mean Corpuscular Hemo Concen 33.1 32.0-36.0 RDW 12.2 11.6-13.7 Mean Platelet Volume 6.8 6.5-11.0 Laboratory test finding 12/15/2010 [facility] Troponin-I 0 NG/ML 0-0.06 31 CBC Auto Diff 12/15/2010 [facility] White Blood Count 7.4 CUMM 4.8-10.8 Red Cell Count 5.27 CUMM 4.2-5.4 Hemoglobin 16.5 g/dL High 12.0-16.0 Hematocrit 48 % High 35-47 Mean Corpuscular Volume 92 um3 79-97 Mean Corpuscular Hemoglob 31 pg 27-31 Mean Corpuscular HGB Cone 34 g/dL 32-36 Redcell Distribution WDTH 13 % 10.5-15 Platelet Count 229 CUMM 150-450 Mean Platelet Volume 8.6 um3 7.4-10.4 Gran % 69.1 % 38-83 Lymph % 24.0 % Low 25-47 Mononuclear % 4.8 % 1-9 Eosinophil % 1.6 % 0-6 Basophil % 0.5 % 0-2 Abs Lymphs 1.8 1.0-4.8 Abs Mononuclear 0.4 0-0.8 Absolute Neutrophil Count 5.1 1.5-7.7 Abs Eosinophils 0.1 0-0.6 Abs Basophils 0 0-0.2 Comp Metabolic Panel 12/15/2010 [facility] Sodium 138 mmol/L 135-145 Potassium 4.0 mmol/L 3.5-5.0 Chloride 104 mmol/L 101-111 Co2 (Carbon Dioxide) 25.0 mmol/L 22-32 Anion Gap 9.0 mmol/L 2-11 32 Glucose 111 mg/dL High 70-100 BUN 21 mg/dL 6-24 Creatinine 0.92 mg/dL 0.50-1.40 One Over Creatinine 1.00 BUN/Creatinine Ratio 22.8 High 8-20 Calcium 9.8 mg/dL 8.1-9.9 Total Protein 7.9 GM/DL 6.2-8.1 Albumin 4.0 GM/DL 3.6-5.4 Globulin 3.9 GM/DL 2-4 Albumin/Globulin Ratio 1.0 1-3 Bilirubin Total 0.5 mg/dL 0.4-1.5 33 Alkaline Phosphatase 90 U/L 30-110 Alt (SGPT) 20 U/L 14-54 Ast (Sgot) 20 U/L 12-42 eGFR Non- 63.6 > 60 eGFR 81.8 > 60 34 Laboratory test 12/15/2010 [facility] Troponin-I 0 NG/ML 0-0.06 35 finding Laboratory test 07/27/2010 [facility] (a) TSH 2.56 mIU/L 0.50- 6.00 finding Lipid Profile 07/27/2010 [facility] (a) Cholesterol 238 mg/dL High 120-200 HDL 43 mg/dL 30-85 Triglycerides 235 mg/dL High 30-200 HDL Risk Factor 5.5 CALC 4.2-7.0 LDL (Calculated) 148 CALC High 0-129 VLDL (Calculated) 47 mg/dL 0-50 Laboratory test finding 07/27/2010 [facility] (a) Free T4 0.90 ng/dL 0.75-1.54 Comprehensive Metabolic 07/27/2010 [facility] (a) Albumin 4.4 g/dL 3.8-5.5 Prof Alk. Phos. 74 U/L 30-110 Alt (SGPT) 15 U/L 7-35 Ast (Sgot) 18 U/L 5-34 BUN 26 mg/dL 6-26 Calcium 9.5 mg/dL 8.6-10.2 Chloride 100 mEq/L 94-112 Creatinine 1.0 mg/dL 0.6-1.4 Carbon Dioxide 29 mEq/L 21-32 Glucose 106 mg/dL High 70-105 36 Sodium 136 mEq/L 134-149 Total Bilirubin 0.3 mg/dL 0.2-1.3 Total Protein 7.0 g/dL 6.3-8.1 Potassium 4.5 mEq/L 3.6-5.5 Globulin 2.6 g/dL 2.0-4.8 A/G Ratio 1.7 Calc 0.6-2.2 BUN/Creat Ratio 25.9 Calc 8.0-36.0 CBC (a) 07/22/2010 [facility] WBC 7.8 3.6-9.6 (607)- - RBC 5.03 3.90-5.70 Hemoglobin (Fma/CMC/CTX) 15.7 g/dL 12.1 - 17.2 Hematocrit (Fma/CMC/CTX) 46.8 % 36.1 - 50.3 Platelets 266 10^3/ul 150-400 Lymph% 33.6 20.5-51.1 Mixed% 5.8 Neutrophils % 60.6 Mean Corpuscular Vol 93 82.2-97.4 Mean Corpuscular Hemoglobin 31.2 27.6-33.3 Mean Corpuscular Hemo Concen 33.6 32.0-36.0 RDW 11.9 11.6-13.7 Mean Platelet Volume 7.2 6.5-11.0 CKMB Only 07/22/2010 [facility] CK-MB (Total) 4.2 ng/ml 0.0-5.0 37 [address] [place] [address] [phone] Laboratory test 02/06/2009 Tan Fitzgerald ([facility]) TSH 1.71 0.50-6.00 finding mIU/L Lipid Profile 02/06/2009 Tan Fitzgerald ([facility]) Cholesterol 215 mg/dL High 120-200 HDL 53 mg/dL 30-85 Triglycerides 203 mg/dL High 30-200 HDL Risk Factor 4.1 CALC Low 4.2-7.0 LDL (Calculated) 121 CALC 0-129 VLDL (Calculated) 41 mg/dL 0-50 Comprehensive Metabolic 02/06/2009 Tan Fitzgerald ([facility]) Albumin 4.5 g/dL 3.8-5.5 Prof Alk. Phos. 91 U/L 30-110 Alt (SGPT) 23 U/L 7-35 Ast (Sgot) 22 U/L 5-34 BUN 20 mg/dL 6-26 Calcium 9.9 mg/dL 8.6-10.2 Chloride 99 mEq/L 94-112 Creatinine 1.0 mg/dL 0.6-1.4 Carbon Dioxide 26 mEq/L 21-32 Glucose 98 mg/dL 70-105 Sodium 139 mEq/L 134-149 Total Bilirubin 0.4 mg/dL 0.2-1.3 Total Protein 7.8 g/dL 6.3-8.1 Potassium 4.5 mEq/L 3.6-5.5 Globulin 3.3 g/dL 2.0-4.8 A/G Ratio 1.3 Calc 0.6-2.2 BUN/Creat Ratio 20.0 Calc 8.0-36.0 1 1 sst serum pour off sent 2 [id number] SEE RESULT BELOW Name: MARIE EASTMAN Stacey : [address]: Kt Mccoy MD Acct: [id number] Unit: [id number] AGE: 61 Location: [facility] Re08/27/16 SEX: F Status: REG REF SPEC: [id number] ALLEN: 08/27/16-1214 [facility] DR: Kt Mccoy MD REQ: [id number] RECD: 08/27/16 STATUS: ORLY PUENTES DR: Mode Ferrer MD _ ORDERED: LEVEL IV COMMENTS: [id number] FINAL DIAGNOSIS Skin, frontal scalp hair line, excision: -- Verrucoid actinic keratosis. -- Deep tip and margins of resection are clear. PRE-OPERATIVE DIAGNOSIS Rule out basal cell carcinoma/squamous cell carcinoma; suture sibley 12 o' clock medial apex margin GROSS DESCRIPTION The specimen is received in formalin labeled, Excision Skin Lesion Right Frontal Scalp Hairline, Suture Sibley 12:00 Medial [place] Margin, and consists of a 2.2 x 0.8 cm waddell-white skin ellipse excised to a maximum depth of 0.5 cm, with a central 0.4 x 0.2 x 0.2 cm white-brown bosselated to papilliferous nodule. There is a suture attached to one long axis designating the 12:00 medial apex margin. The specimen is inked as follows: 9:00 half black, 3:00 half blue, 12:00 tip green; serially sectioned from 12:00 to 6: 00 and entirely submitted in cassettes A through D to include tips in cassette A and lesion in cassette C. Signed (signature on file) Orlando Castro MD 0335 END OF REPORT * ML=Testing performed at Main Lab DEPARTMENT OF PATHOLOGY, [address] [place] [address] Orlando Castro M.D. Director [facility] # [id number] 4 [id number] 5 SEE RESULT BELOW Name: MARIE EASTMAN : [address]: Kt Mccoy MD Acct: [id number] Unit: [id number] AGE: 61 Location: [facility] Re06/11/16 SEX: F Status: REG REF SPEC: [id number] ALLEN: 06/11/16 [facility] DR: Kt Mccoy MD REQ: [id number] RECD: 06/11/16 STATUS: ORLY PUENTES DR: Mode Ferrer MD _ ORDERED: LEVEL IV COMMENTS: [id number] FINAL DIAGNOSIS Skin, left cheek, excision: -- Squamous cell carcinoma in situ. -- Deep, tip, and lateral margins are clear. PRE-OPERATIVE DIAGNOSIS Actinic keratosis versus squamous cell carcinoma; suture sibley 12 o'clock superior apex margin GROSS DESCRIPTION The specimen is received in formalin labeled, Excision Skin Lesion Left Cheek , Suture Sibley 12:00 Superior [place] Margin, and consists of a 2.0 x 0.8 cm waddell-gandara hairbearing skin ellipse excised to a depth of 0.3 cm with a central 0.4 x 0.3 x 0.1 cm waddell lesion. There is a suture attached to one long axis, which designates the 12:00 superior apex margin. The specimen is inked as follows: 9:00 half black, 3:00 half blue and 12:00 tip green, serially sectioned from 12:00 to 6:00 and entirely submitted in cassettes A and B to include ellipse ends in cassette A. Signed (signature on file) Alia Lao MD 1000 END OF REPORT * ML=Testing performed at Main Lab DEPARTMENT OF PATHOLOGY, [address] [place] [address] Orlando Castro M.D. Director [facility] # [id number] 6 Reference Range and Interpretation: TnI (ng/mL) Interpretation Less Than 0.03 ng/mL Not supportive of diagnosis of KS 0.03 - 0.50 ng/mL Indeterminate: suggest serial studies if clinically indicated. Greater than 0.5 ng/mL Consistent with diagnosis of KS 7 >100 to <200 pg/mL: likely compensated congestive heart failure (CHF) 200 to 400 pg/mL: likely moderate CHF >400 pg/mL: likely moderate to severe CHF 8 Because ethnic data is not always readily available, this report includes an eGFR for both -Americans and non- Americans. The National Kidney Disease Education Program (NKDEP) does not endorse the use of the MDRD equation for patients that are not between the ages of 18 and 70, are , have extremes of body size, muscle mass, or nutritional status, or are non- or non-. According to the National Kidney Foundation, irrespective of diagnosis, the stage of the disease is based on the level of kidney function: Stage Description GFR(mL/min/1.73 m(2)) 1 Kidney damage with normal or decreased GFR 90 2 Kidney damage with mild decrease in GFR 60-89 3 Moderate decrease in GFR 30-59 4 Severe decrease in GFR 15-29 5 Kidney failure <15 (or dialysis) 9 Reference Range and Interpretation: TnI (ng/mL) Interpretation Less Than 0.03 ng/mL Not supportive of diagnosis of KS 0.03 - 0.50 ng/mL Indeterminate: suggest serial studies if clinically indicated. Greater than 0.5 ng/mL Consistent with diagnosis of KS 10 RUN DATE: 08/02/14 [facility] LAB LIVE PAGE 1 RUN TIME: [address] [place] [address] Specimen Inquiry Name: MARIE EASTMAN : [address]: Julian Clark MD Acct: [id number] Unit: [id number] AGE: 59 Location: ENDO Re07/30/14 SEX: F Status: REG REF SPEC: [id number] ALLEN: 07/30/14-[address]: Julian Clark MD REQ: [id number] RECD: 07/30/14 STATUS: ORLY PUENTES DR: Mode Ferrer MD _ ORDERED: LEVEL IV FINAL DIAGNOSIS Colon, mid transverse, biopsy: -- Tubular adenoma. -- No high grade dysplasia or malignancy. CLINICAL HISTORY Screening colonoscopy with change in bowel habits, rectal bleeding POST-OPERATIVE DIAGNOSIS Screening colonoscopy to cecum - difficult loop. Mild diverticulosis, transverse polyp - biopsy pending; bright red blood per rectum - constipaton GROSS DESCRIPTION The specimen is received in formalin labeled, Biopsy Mid Transverse Colon Polyp, and consists of a 0.8 x 0.6 x 0.2 cm aggregate of multiple waddell irregular soft tissue fragments, which is submitted entirely in one cassette. Signed (signature on file) Alia Lao MD 09/15 1312 END OF REPORT * ML=Testing performed at Main Lab DEPARTMENT OF PATHOLOGY, [address] [place] [address] Orlando Castro M.D. Director [facility] # [id number] 11 ~~1SST 12 REFERENCE VALUE <4.0 (Negative) Test Performed by: [address] [address] Data Warehouse Developer: Jose Angel Paredes M.D. 13 Negative serology. Celiac disease unlikely. However, approximately 10% of patients with celiac disease are seronegative. Also, patients who are already adhering to a gluten-free diet may be seronegative. If celiac disease is highly clinically suspected, consider HLA-DQ typing. Test Performed by: [facility] [id number] Data Warehouse Developer: Jose Angel Paredes M.D. 14 RUN DATE: 01/09/14 [facility] LAB LIVE PAGE 1 RUN TIME: [address] [place] [address] Specimen Inquiry Name: MARIE EASTMAN : [address]: Mode Ferrer MD Acct: [id number] Unit: [id number] AGE: 58 Location: [facility] Re01/08/14 SEX: F Status: REG REF SPEC: [id number] ALLEN: 01/08/14-0959 [facility] DR: Mode Ferrer MD REQ: [id number] RECD: 01/08/14-498 STATUS: SOUT _ ORDERED: IMAGE ANALYSIS, HPV/Thin Prep FINAL DIAGNOSIS Negative for Intraepithelial lesion or Malignancy COMMENTS: Specimen sent to [facility] in [place], [place] on 01/09/14 by [id number] at 1144. Results will be reported separately. A. Vaginal Specimen Adequacy: Satisfactory of evaluation Patient Information: HPV: High risk HPV DNA testing regardless of pap results. Actual Specimen Date: 01/08/14 LMP If Unknown: 10 yrs Spec Date if unknown: 3+ yrs Cautery: N IUD: N Lesion, grossly demonstrate: N Radiation Y/N? N ?: N Post Menopausal?: Y Hysterectomy?: N Previous Abnormal Pap Smears?:N Signed (signature on file) IVY Francois (ASCP) 01/09 1218 This Pap test was evaluated with the assistance of the NovaShuntPrep Test Imaging System. Due to cytologic findings at the pipelayer microscope, comprehensive manual rescreening by a Manager Ct may be required. The Pap Smear is a screening test designed to aid in the detection of premalignant and malignant conditions of the uterine cervix. It is not a diagnostic procedure and should not be used as the sole means of detecting cervical cancer. Both false- positive and false- negative reports do occur. Depending on your risk status, a Pap smear shoudl be obtained and evaluated every 1-3 years. END OF REPORT * ML=Testing performed at Main Lab DEPARTMENT OF PATHOLOGY, [facility] DATES [place], [place] [address] Orlando Castro M.D. Director [facility] # [id number] RUN DATE: 01/09/14 [facility] LAB LIVE PAGE 1 RUN TIME: [address] [place] [address] Specimen Inquiry Patient: RAIZAMARIE J [id number] (Continued) 15 RESULT: Ectocervical/Endocervical 16 The following Other High Risk HPV types were not detected: 31, 33, 35, 39, 45, 51, 52, 56, 58, 59, 66, and 68 Test Performed by: [place] [address] Data Warehouse Developer: Carlos Washburn III, M.D. 17 RESULTS VERIFIED BY REPEAT ANALYSIS 18 RESULTS VERIFIED BY REPEAT ANALYSIS 19 FASTING 20 Test Performed by: [place] [address] Data Warehouse Developer: Carlos Washburn III, M.D. 21 FASTING 3 SST 2 LAV 22 FASTING 3 SST 2 LAV 23 -- REFERENCE VALUE -- <1.0 (Negative) Test Performed by: [place] [address] Data Warehouse Developer: Carlos Washburn III, M.D. 24 -- REFERENCE VALUE -- Not Applicable 25 RESULT: HLA-B27 antigen was not detected. Method: Flow Cytometry Performing Laboratory CLIA# [id number] Test Performed by: [place] [address] Data Warehouse Developer: Carlos Washburn III, M.D. 26 -- REFERENCE VALUE -- <1.0 (Negative) 27 -- REFERENCE VALUE -- <1.0 (Negative) Test Performed by: [place] [address] Data Warehouse Developer: Carlos Washbrun III, M.D. 28 Acute inflammation: >10.00 29 result ori'd 30 -- REFERENCE VALUE -- 25-HYDROXY D TOTAL (D2+D3) Optimum levels in the normal population are 25-80 Test Performed by: [place] [address] Data Warehouse Developer: Carlos Washburn III, M.D. 31 New Reference Range and Interpretation effective 05/04/2002 TnI (ng/ml) INTERPRETATION Less Than 0.06 ng/mL NOT SUPPORTIVE OF DIAGNOSIS OF KS 0.06 - 0.50 ng/ml INDETERMINATE: SUGGEST SERIAL STUDIES IF CLINICALLY INDICATED. Greater than 0.5 ng/mL CONSISTENT WITH DIAGNOSIS OF KS . 32 Anion gap measurement may be of limited value in the presence of any alkalosis, especially in a combined acid base disorder. . 33 A metabolite of Naproxen, O-desmethylnaproxen, has been shown to interfere with the Jendrassik-Jared method for measuring total bilirubin. Samples from patients who have taken Naproxen have shown spurious elevation in total bilirubin levels. 34 Because ethnic data is not always readily available, this report includes an eGFR for both -Americans and non- Americans. The National Kidney Disease Education Program (NKDEP) does not endorse the use of the MDRD equation for patients that are not between the ages of 18 and 70, are , have extremes of body size, muscle mass, or nutritional status, or are non- or non-. According to the National Kidney Foundation, irrespective of diagnosis, the stage of the disease is based on the level of kidney function: Stage Description GFR(mL/min/1.73 m(2)) 1 Kidney damage with normal or decreased GFR 90 2 Kidney damage with mild decrease in GFR 60-89 3 Moderate decrease in GFR 30-59 4 Severe decrease in GFR 15-29 5 Kidney failure <15 (or dialysis) 35 New Reference Range and Interpretation effective 05/04/2002 TnI (ng/ml) INTERPRETATION Less Than 0.06 ng/mL NOT SUPPORTIVE OF DIAGNOSIS OF KS 0.06 - 0.50 ng/ml INDETERMINATE: SUGGEST SERIAL STUDIES IF CLINICALLY INDICATED. Greater than 0.5 ng/mL CONSISTENT WITH DIAGNOSIS OF [place] . 36 result ori'd 37 1 SST Procedures Date Code Description Status 09/15/2017 32858 Pulse Oximetry Completed 04/19/2017 [id number] Mammogram Completed 07/30/2014 [id number] Colonoscopy Completed 01/22/2014 [id number] Mammogram Completed 01/08/2014 59150 Vision Test- screening test of visual acuity, Completed quantitative, bila 07/22/2010 99805 Electrocardiogram Complete Completed Encounters Type Date Location Provider Dx Diagnosis Office Visit 04/26/2018 [facility] Office Alia R10.31 Right lower quadrant 11:00a Lili, [employer]IL[employer] M[employer]ENGER pain Office Visit 08/24/2017 Main Office Emily Fraser, A09 Infectious 3:15p [employer] gastroenteritis and colitis, unspecified Office Visit 05/16/2017 [facility] Office Mode Ferrer, M65.4 Radial styloid 2:50p M.D. tenosynovitis [de Quervain] Office Visit 04/13/2017 [facility] Office Mode Ferrer, M65.4 Radial styloid 4:00p M.D. tenosynovitis [de Quervain] Office Visit 06/16/2016 [facility] Office Mode Ferrer, M25.562 Pain in left knee 1:30p M.D. M25.561 Pain in right knee Z12.39 Encounter for oth screening for malignant neoplasm of breast Office Visit 03/23/2016 4:30p [facility] Office Alia D23.39 Other benign Lili, [employer]IL[employer] MESSENGER neoplasm of skin of other parts of face Office Visit 06/04/2015 11:30a [facility] Office Mode Mcgovern M54.9 DorsalgiaNabil M.D. unspecified Office Visit 04/29/2015 11:10a [facility] Office Mode Mcgovern 786.50 Pain Chest Unspec Jeff Ferrer Office Visit 09/09/2014 9:30a [facility] Mode Mcgovern 717.3 Derangement Jeff Ferrer Medial Meniscus Other & Unspec Office Visit 06/18/2014 11:40a [facility] Mode Mcgovern 787.99 Digestive Jeff Ferrer Symptoms Other Office Visit 01/08/2014 8:30a [facility] Office Mode Mcgovern V70.0 Examination Jeff Ferrer General Medical Routine AT Health Care Facility V76.10 Screening For Malignant Neoplasm Breast V76.51 Screening For Malignant Neoplasms Colon V76.2 Screening Malignant Neoplasm Cervix V77.91 Screening For Lipoid Disorders V77.1 Screening Diabetes Mellitus 268.9 Vitamin D Deficiency Unspec 401.9 Hypertension Unspec 782.9 Skin & Integumentary Tissue Other Symptoms 719.69 Joint Symptoms Other Multiple Sites 272.1 Hypertriglyceridemia Pure V72.0 Examination Eyes & Vision Office Visit 11/23/2013 8:15a [facility] Office Kirsten Martinez, 386.11 Vertigo Benign Afnp-C Paroxysmal Position 401.9 Hypertension Unspec Office Visit 07/06/2013 11:00a [facility] Office Christiano Harris 724.3 Sciaticdiony Aguilar Office Visit 02/02/2013 8:45a [facility] Office Kirsten Martienz, 780.79 Malaise And Afnp-C Fatigue Other 272.4 Hyperlipidemia Other Unspec 305.1 Tobacco Use Disorder 782.1 Rash & Other Nonspec Skin Eruption Office Visit 11/21/2012 [facility] Alia 782.9 Skin & 4:00p Office Lili, [employer] MESSENGER Integumentary Tissue Other Symptoms Office Visit 05/04/2012 Main Office Mode Mcgovern 719.47 Pain Joint Ankle & 7:15p Jeff Ferrer Foot Office Visit 01/24/2012 Main Office Emily Fraser, 530.81 Esophageal Reflux 7:30p [employer] 401.9 Hypertension Unspec Office Visit 07/23/2011 11:00a [facility] Office Emily Fraser 401.9 Hypertension [employer]ILROOM MESSENGER Unspec Office Visit 05/31/2011 11:10a [facility] Mode Mcgovern 724.5 Backache Unspec Jeff Ferrer Office Visit 05/25/2011 2:30p [facility] Cy Mcgovern 72Ashley.2 Lumbajarett Pena M.D. Office Visit 04/22/2011 4:00p [facility] Emily Evelio, 401.9 Hypertension [employer]IL[employer] MESSENGER Unspec 477.9 Rhinitis Allergic Cause Unspec Office Visit 08/05/2010 3:45p [facility] Emily Evelio, 401.9 Hypertension [employer]IL[employer] MESSENGER Unspec 530.81 Esophageal Reflux 272.4 Hyperlipidemia Other Unspec Office Visit 07/22/2010 3:45p [facility] Emily Evelio, 401.9 Hypertension [employer]IL[employer] MESSENGER Unspec 530.81 Esophageal Reflux Office Visit 06/17/2010 4:00p [facility] Emily Evelio, 401.9 Hypertension [employer]IL[employer] MESSENGER Unspec 389.9 Hearing Loss Unspec Office Visit 04/08/2010 2:00p [facility] Emily Evelio, 401.9 Hypertension [employer]IL[employer] MESSENGER Unspec 709.9 Skin & Subcutaneous Tissue Disorders Unspec Office Visit 08/27/2009 3:30p [facility] Office Mode Mcgovern 719.47 Pain Joint Anette & Jeff Ferrer Foot Office Visit 02/06/2009 9:00a [facility] Office Emily Evelio, 401.9 Hypertension MAILROOM MESSENGER Unspec 272.4 Hyperlipidemia Other Unspec Office Visit 01/09/2009 1:45p [facility] Office Emily Evelio, 401.9 Hypertension [employer]IL[employer] MESSENGER Unspec 272.4 Hyperlipidemia Other Unspec Plan of Treatment 10/13/2018 - Alia Pearson, [id number] CoughNew Medication:Advair Diskus 100-50 mcg/Dose - 1 puff twice a day, rinse mouth and throat after useBenzonatate 100 mg - 1 by mouth three times a day as needed coughingComments:A cough with this kind of illness can last weeks, but I would expect improvement through the weekendCall OFELIA if condition changes/worsens in any wayR49.8 Other voice and resonance disordersComments:steam showersrestpush fluids--hot with honeynasal irrigation/spraysinhaler2-3 days MAX- call OFELIA ifcondition changes/worsens in any wayH92.03 Otalgia, bilateralNew Medication:Fluticasone Propionate 50 mcg/ Act - 2 sprays each nostril dailyIbuprofen 800 mg - take 1 tablet by mouth two times daily with food maximum daily dose of 2 per dayAllComments:~B_~U_ Medication Management~b_~u_ Patient Understands medications he 's taking? Yes No Are there Barriers to Adherence? Yes No Has the patient been asked about herbal supplements and therapies, and OTC meds? Yes No As always, we strongly encourage a healthy diet and makingphysical activity a part of your every day life. If you have questions about how or where to start, please contact the office.
[2018-10-15] MEDS ORDERED: Lidocaine 2% PF * 5 ML VIAL INH ONE (00:59)
--- NOTE | 2018-10-15 01:02 | ED ---
Respiratory - HPI Summary HPI Summary: This patient is a 63 year old F presenting to ED with a chief complaint of cough since 10/08/18. She started with a dry cough and her sx has worsened since onset. Then on 10/11/18, her coughing fits have worsened that she is unable to sleep. She went to her PCP on the morning of 10/13/18 and was dx with bronchitis. She was given rx for abx from her PCP but it hasnt helped. The patient rates the pain 8/10 in severity. Symptoms aggravated by nothing. Symptoms alleviated by nothing. Patient reports nasal congestion, sore throat ( due to cough), R ear pain, productive cough currently with greenish sputum, diaphoresis, and slight SOB. Patient denies changes in diet, CP, and fever. Patient denies recent travel. PMHx of HTN. Patient is a former smoker and denies respiratory hx. - History of Current Complaint Chief Complaint: EDUpperRespComplaint Stated Complaint: COUGH/SORE THROAT/PAIN ON NECK PER PT Time Seen by Provider: 10/15/18 00:51 Hx Obtained From: Patient Onset/Duration: Sudden Onset, Lasting Weeks - since 10/08/18, Still Present Timing: Constant Current Severity: Severe Pain Intensity: 8 Character: Cough (Productive), Cough (Nonproductive) Sputum Color: Green Aggravating Factor(s): Nothing Alleviating Factor(s): Nothing Associated Signs and Symptoms: SOB, Diaphoresis, Nasal Congestion - Allergy/Home Medications Allergies/Adverse Reactions: Allergies Allergy/AdvReac Type Severity Reaction Status Date / Time No Known Allergies Allergy Verified 10/14/18 23:07 Home Medications: Home Medications Benzonatate CAP* [Tessalon 100 MG CAP*] 100 mg PO QID PRN 10/15/18 [History Confirmed 10/15/18] Ibuprofen [Ibu] 800 mg PO BID 10/15/18 [History Confirmed 10/15/18] PMH/Surg Hx/FS Hx/Imm Hx Endocrine/Hematology History: Denies: Hx Anticoagulant Therapy, Hx Blood Disorders, Hx Diabetes, Hx Sickle Cell Disease, Hx Unexplained Bleeding Cardiovascular History: Reports: Hx Hypertension - takes lisinopril Denies: Hx Pacemaker/ICD Respiratory History: Denies: Hx Asthma History: Denies: Hx Dialysis, Hx Renal Disease Musculoskeletal History: Reports: Hx Arthritis - KNEES AND WRISTS, Hx Tendonitis - POSSIBLY RIGHT WRIST Denies: Hx Osteoporosis Sensory History: Reports: Hx Contacts or Glasses - READERS Denies: Hx Hearing Aid Opthamlomology History: Reports: Hx Contacts or Glasses - READERS Psychiatric History: Denies: Hx Panic Disorder - Cancer History Cancer Type, 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 Hx Anesthesia Reactions: Yes - [id number]- GAS FOR ANESTHESIA- NAUSEA Infectious Disease History: No Infectious Disease History: Denies: Traveled Outside the [place] in Last 30 Days - Family History Known Family History: Positive: Unknown - patient is adopted - Social History Alcohol Use: None Hx Substance Use: No Substance Use Type: Reports: None Hx Tobacco Use: Yes - not currently Smoking Status (MU): Former Smoker Amount Used/How Often: UP TO 1 1/2 PPD X 20 YEARS Have You Smoked in the Last Year: No Review of Systems Positive: Skin Diaphoresis. Negative: Fever Positive: Sore Throat - secondary to cough, Ear Ache - right, Other - nasal congestion Negative: Chest Pain Positive: Shortness Of Breath, Cough - productive cough currently with greenish sputum Positive: Other - denies changes in diet All Other Systems Reviewed And Are Negative: Yes Physical Exam - Summary Physical Exam Summary: Appearance: Well-appearing, Well-nourished, lying in bed comfortably Skin: Warm, dry, no obvious rash Eyes: sclera anicteric, no conjunctival pallor ENT: mucous membranes moist, pharynx appears normal Neck: Supple, nontender Respiratory: Clear to auscultation, no signs of respiratory distress Cardiovascular: Normal S1, S2. No murmurs. Normal distal pulses in tibial and radial bilaterally. Abdomen: Soft, nontender, normal active bowel sounds present Musculoskeletal: Normal, Strength/ROM Intact Neurological: A&Ox3, awake and alert, mentation is normal, speech is fluent and appropriate Psychiatric: affect is normal, does not appear anxious or depressed Triage Information Reviewed: Yes Vital Signs On Initial Exam: Initial Vitals Temp Pulse Resp BP Pulse Ox 98.2 F 113 18 151/100 94 10/14/18 23:06 10/14/18 23:06 10/14/18 23:06 10/14/18 23:06 10/14/18 23:06 Vital Signs Reviewed: Yes Diagnostics - Vital Signs Vital Signs Temp Pulse Resp BP Pulse Ox 10/14/18 23:06 98.2 F 113 18 151/100 94 - Laboratory Lab Statement: Any lab studies that have been ordered have been reviewed, and results considered in the medical decision making process. - Radiology CXR Radiology Interpretation Completed By: ED Physician Summary of Radiographic Findings: No acute processes. Pending radiologist official report. Disposition - Course Assessment/Plan: This patient is a 63 year old F presenting to ED with a chief complaint of cough since 10/08/18. CXR, per ED physician, reveals no acute processes. This patient will be discharged with dx of bronchitis. Patient understands and agrees with this plan. - Differential Dx - Cardiopulmonary Differential Diagnoses - Cardiopulmonary: Bronchitis - Diagnoses Provider Diagnoses: Bronchitis Discharge - Sign-Out/Discharge Documenting (check all that apply): Patient Departure - discharge Patient Received Moderate/Deep Sedation with Procedure: No - Discharge Plan Referrals: Mode Ferrer MD [Primary Care Provider] - - Attestation Statements Document Initiated by Scribe: Yes Documenting Scribe: Satya Fowler Provider For Whom Scribe is Documenting (Include Credential): Sagar Collado MD Scribe Attestation: Satya Felipe, scribed for Sagar Collado MD on 10/15/18 at 0144. Status of Scribe Document: Ready
[2018-10-15 02:22] VITALS: BP 141/98
== END 2018-10-15 02:15 | disposition home or self-care (01) ==
LOC: ED 22:59
DX: J40 Bronchitis, not specified as acute or chronic (principal); I10 Essential (primary) hypertension; Z87.891 Personal history of nicotine dependence
CPT/HCPCS: 71046; 99282

== ENCOUNTER 2019-09-17 17:20 | Observation (INO) | payer OTHER ==
[2019-09-17 17:59] LABS: ABS Basophils 0.1 10^3/ul (0-0.2); ABS Eosinophils 0.2 10^3/ul (0-0.6); ABS Lymphocytes 2.8 10^3/ul (1.0-4.8); ABS Monocytes 0.8 10^3/ul (0-0.8); ABS Neutrophils 7.3 10^3/ul (1.5-7.7); Eosinophil % 1.9 %; Hematocrit 49 % (35-47); Hemoglobin 16.9 g/dL (12.0-16.0); Lymphocyte % 25.2 %; Mean Corpuscular HGB Conc 34 g/dL (31-36); Mean Corpuscular Hemoglobin 31 pg (27-31); Mean Corpuscular Volume 90 fL (80-97); Mean Platelet Volume 7.9 fL (7.4-10.4); Platelet Count 264 10^3/uL (150-450); Red Blood Count 5.48 10^6 /uL (3.70-4.87); Red Cell Distribution Width 13 % (10-15); White Blood Count 11.2 10^3/uL (3.5-10.8)
[2019-09-17 18:09] LABS: Albumin 4.5 g/dL (3.2-5.2); Calcium 10.4 mg/dL (8.6-10.3); Potassium 4.1 mmol/L (3.5-5.0); Total Bilirubin 0.4 mg/dL (0.2-1.0)
[2019-09-17 18:10] LABS: INR 1.11 (0.82-1.09)
[2019-09-17 18:15] LABS: Albumin/Globulin Ratio 1.4 (1-3); BUN/Creatinine Ratio 20.6 (8-20); EGFR African American 70.2 (>60); Globulin 3.3 g/dL (2-4); Total Protein 7.8 g/dL (6.4-8.9)
--- NOTE | 2019-09-17 18:48 | ED ---
HPI Cardiac - HPI Summary HPI Summary: The patient is a 64 y/o F presenting to [facility] with a cc of mid-sternal CP, and worsening fatigue and diaphoretic episodes over the last few days. She reports that she visited Dr. Ferrer today, her PCP for abnormal fatigue, and he recommended she come here for further lab work. Dr. Ferrer ran labs in his office, including a D-dimer which was normal, but he was unable to draw a troponin, so he wanted the patient to come here. The mid-sternal tightness is intermittent and not aggravated with exertion or lying down, although she states that she chronically has difficulty with lying supine. The chronic SOB does not seem to be worsening. She additionally notes new episodes of diaphoresis with ambulation such as when she is walking around the grocery store. She denies any edema in the lower extremities. Symptoms are currently rated 2/10 in severity. No recent stress test. She is scheduled for an appointment with Dr. Lino from cardiology tomorrow at 1530. PMHx: HTN ( medication compliant), arthritis. No pulmonary hx. Unsure of FHx as patient is adopted. Former smoker, no EtOH, no substance use. Medications reviewed. Allergies noted - History of Current Complaint Chief Complaint: EDChestPainROMI Stated Complaint: CHEST PAIN PER PT Time Seen by Provider: 09/17/19 17:59 Hx Obtained From: Patient Onset/Duration: Started Days Ago Timing: Intermittent Initial Severity: Moderate Current Severity: None Pain Intensity: 0 Pain Scale Used: 0-10 Numeric Chest Pain Location: Mid Sternal Chest Pain Radiates: No Character: Tightness Alleviating Factor(s): Nothing Associated Signs and Symptoms: Positive: Chest Pain - mid-sternal tightness, Shortness of Breath, Diaphoresis - intermittent episodes, Other: - fatigue. Negative: Edema - Allergy/Home Medications Allergies/Adverse Reactions: Allergies Allergy/AdvReac Type Severity Reaction Status Date / Time methylprednisolone Allergy Headache Verified 09/17/19 18:13 Home Medications: Home Medications Ibuprofen TAB* [Advil TAB*] 200 mg PO BID PRN 09/17/19 [History Confirmed ] Ibuprofen TAB* [Motrin TAB* 800 MG] 800 mg PO BID WITH MEALS MDD 1600mg [History Confirmed 09/17/19] PMH/Surg Hx/FS Hx/Imm Hx Endocrine/Hematology History: Denies: Hx Anticoagulant Therapy, Hx Blood Disorders, Hx Diabetes, Hx Sickle Cell Disease, Hx Unexplained Bleeding Cardiovascular History: Reports: Hx Hypertension - takes lisinopril Denies: Hx Pacemaker/ICD Respiratory History: Denies: Hx Asthma, Hx Chronic Obstructive Pulmonary Disease (COPD), Hx Pulmonary Edema, Hx Pulmonary Embolism, Hx Sleep Apnea History: Denies: Hx Dialysis, Hx Renal Disease Musculoskeletal History: Reports: Hx Arthritis - KNEES AND WRISTS, Hx Tendonitis - POSSIBLY RIGHT WRIST Denies: Hx Osteoporosis Sensory History: Reports: Hx Contacts or Glasses - READERS Denies: Hx Hearing Aid Opthamlomology History: Reports: Hx Contacts or Glasses - READERS Psychiatric History: Denies: Hx Panic Disorder - Cancer History Cancer Type, Location and Year: BASAL CELL FROM FACE Hx Chemotherapy: No Hx Radiation Therapy: No - Surgical History Surgical History: Yes Surgery Procedure, Year, and Place: 4 C SECTIONS , PARTIAL HYSTERECTOMY, GALL BLADDER. Hx Anesthesia Reactions: Yes - [id number]- GAS FOR ANESTHESIA- NAUSEA Infectious Disease History: No Infectious Disease History: Denies: Traveled Outside the [place] in Last 30 Days - Family History Known Family History: Positive: Unknown - patient is adopted - Social History Alcohol Use: None Hx Substance Use: No Substance Use Type: Reports: None Hx Tobacco Use: Yes - not currently Smoking Status (MU): Former Smoker Amount Used/How Often: UP TO 1 1/2 PPD X 20 YEARS Have You Smoked in the Last Year: No Review of Systems Positive: Fatigue, Skin Diaphoresis - episodes with ambulation Positive: Chest Pain - mid-sternal Positive: Shortness Of Breath Negative: Edema All Other Systems Reviewed And Are Negative: Yes Physical Exam - Summary Physical Exam Summary: Constitutional: Well-developed, Obese, Alert. (-) Distressed Skin: Warm, Dry HENT: Normocephalic; Atraumatic Eyes: Conjunctiva normal Neck: Musculoskeletal ROM normal neck. (-) JVD, (-) Stridor, (-) Nuchal rigidity Cardio: Rhythm regular, rate normal, Heart sounds normal; Intact distal pulses; Radial pulses are 2+ and symmetric. (-) Murmur Pulmonary/Chest wall: Effort normal. (-) Respiratory distress, (-) Wheezes, (-) Rales Abd: Soft, (-) tenderness, (-) Distension, (-) Guarding, (-) Rebound Musculoskeletal: (-) Edema Lymph: (-) Cervical adenopathy Neuro: Alert, Oriented x3 Psych: Mood and affect Normal Triage Information Reviewed: Yes Vital Signs On Initial Exam: Initial Vitals Temp Pulse Resp BP Pulse Ox 97.1 F 118 18 184/97 99 09/17/19 17:22 09/17/19 17:22 09/17/19 17:22 09/17/19 17:22 09/17/19 17:22 Vital Signs Reviewed: Yes Procedures - Sedation Patient Received Moderate/Deep Sedation with Procedure: No Diagnostics - Vital Signs Vital Signs Temp Pulse Resp BP Pulse Ox 09/17/19 18:10 6 09/17/19 18:09 148/109 09/17/19 17:22 97.1 F 118 18 184/97 99 - Laboratory Lab Results: Lab Results 09/17/19 09/17/19 09/17/19 Range/Units 17:51 17:51 17:51 WBC 11.2 H (3.5-10.8) 10^3/uL RBC 5.48 H (3.70-4.87) 10^6 /uL Hgb 16.9 H (12.0-16.0) g/dL Hct 49 H (35-47) % MCV 90 (80-97) fL MCH 31 (27-31) pg MCHC 34 (31-36) g/dL RDW 13 (10-15) % Plt Count 264 (150-450) 10^3/uL MPV 7.9 (7.4-10.4) fL Neut % (Auto) 64.9 % Lymph % (Auto) 25.2 % [place] % (Auto) 7.0 % Eos % (Auto) 1.9 % Baso % (Auto) 1.0 % Absolute Neuts (auto) 7.3 (1.5-7.7) 10^3/ul Absolute Lymphs (auto) 2.8 (1.0-4.8) 10^3/ul Absolute Monos (auto) 0.8 (0-0.8) 10^3/ul Absolute Eos (auto) 0.2 (0-0.6) 10^3/ul Absolute Basos (auto) 0.1 (0-0.2) 10^3/ul Absolute Nucleated RBC 0.0 10^3/ul Nucleated RBC % 0.0 INR (Anticoag Therapy) 1.11 H (0.82-1.09) Sodium 134 L (135-145) mmol/L Potassium 4.1 (3.5-5.0) mmol/L Chloride 98 L (101-111) mmol/L Carbon Dioxide 29 (22-32) mmol/L Anion Gap 7 (2-11) mmol/L BUN 20 (6-24) mg/dL Creatinine 0.97 H (0.51-0.95) mg/dL Est GFR ( Amer) 70.2 (>60) Est GFR (Non-Af Amer) 58.0 (>60) BUN/Creatinine Ratio 20.6 H (8-20) Glucose 174 H (70-100) mg/dL Calcium 10.4 H (8.6-10.3) mg/dL Total Bilirubin 0.40 (0.2-1.0) mg/dL AST 14 (13-39) U/L ALT 15 (7-52) U/L Alkaline Phosphatase 96 (34-104) U/L Troponin I 0.00 (<0.03) ng/mL Total Protein 7.8 (6.4-8.9) g/dL Albumin 4.5 (3.2-5.2) g/dL Globulin 3.3 (2-4) g/dL Albumin/Globulin Ratio 1.4 (1-3) Result Diagrams: 09/17/19 17:51 09/17/19 17:51 Lab Statement: Any lab studies that have been ordered have been reviewed, and results considered in the medical decision making process. - Radiology CXR Radiology Interpretation Completed By: Radiologist Summary of Radiographic Findings: Impression: No acute cardiopulmonary process by radiograph. ED physician has reviewed this report. - EKG 1725 Cardiac Rate: Tachycardia - 109 BPM EKG Rhythm: Sinus Tachycardia EKG Comparison: No Significant Change - Compared to 2014, no significant change Summary of EKG Findings: An EKG at 1725 reveals sinus tachycardia at 109 BPM. T wave inversions in lead III. Compared to 2014, no significant change. ED physician has reviewed and interpreted this EKG. Re-Evaluation - Re-Evaluation First Eval Re-Evaluation Time: 19:30 Comment: Discussed results and plan for admission Disposition - Course Course Of Treatment: 64 y/o F w hx HTN, obesity p/w CP, MARX, fatigue and diaphoresis. - well appearing here, VS notable for HR 110's. Chest Pain DDX: Given the patient's clinical presentation, highest on differential is ACS. Heart score: 4, moderate risk. D/w Dr. Irwin for admission. Although less likely , differential also includes the following: --Pneumothorax: Equal breath sounds , story inconsistent since gradual onset of symptoms. CXR shows no evidence of pneumothorax. Unlikely. --Cardiac tamponade: The history and physical are not concerning for tamponade. No Pulsus Paradoxus, no tachypnea. Unlikely. -- Mediastinitis or esophageal rupture: The history is not consistent, as the patient has had no recent history of significant wretching, instrumentation, or mediastinal surgeries. Unlikely. --Aortic dissection: The patient does not describe the classical tearing chest pain radiating into the back, and the CXR does not show mediastinal widening or other signs of aortic dissection. Unlikely. --PE: Wells low risk, d dimer negative at PCP - Diagnoses Provider Diagnoses: SOB (shortness of breath), Chest pain - Physician Notifications Discussed Care Of Patient With: Josef Irwin - hospitalist Time Discussed With Above Provider: 19:20 Instructed by Provider To: Other - I discussed the patients case with Dr. Irwin , who accepts the patient for admission. Discharge ED - Sign-Out/Discharge Documenting (check all that apply): Patient Departure - Patient accepted for admission by Dr. Irwin. - Discharge Plan Condition: Stable Disposition: ADMITTED TO [facility] - Billing Disposition and Condition Condition: STABLE Disposition: Admitted to [facility] - Attestation Statements Document Initiated by Niles: Yes Documenting Scribe: Deidre Oden Provider For Whom Niles is Documenting (Include Credential): Dr. Vita Phillips MD Scribe Attestation: Deidre Felipe scribed for Dr. Vita Phillips MD on 09/18/19 at 0359. Scribe Documentation Reviewed: Yes Provider Attestation: The documentation as recorded by the Deidre mandujano accurately reflects the service I personally performed and the decisions made by me, Dr. Vita Phillips MD Status of Scribe Document: Viewed
[2019-09-17] MEDS ORDERED: NS 0.9% 1000 ML** 1,000 ML IV.FLUID IV ONE (19:34)
[2019-09-17] MEDS ORDERED: Ondansetron INJ* 2 MG/ML VIAL IV PRN (20:01)
[2019-09-17] MEDS ORDERED: Al Hydrox/Mg Hydrox/Simet LIQ* 30 ML UDC PO PRN (20:01)
[2019-09-17] MEDS ORDERED: Acetaminophen TAB* 325 MG PO PRN (20:01)
[2019-09-17] MEDS ORDERED: Lisinopril TAB* 10 MG PO ONE (20:08)
[2019-09-17] MEDS ORDERED: Enoxaparin(*) 40 MG/0.4 ML SYR SUBCUT SCH (21:00)
[2019-09-17] MEDS: Senna TAB 8.6 mg* TAB PO SCH (22:10)
--- NOTE | 2019-09-17 23:26 | HP ---
CC: Dr. Ferrer * HISTORY AND PHYSICAL: DATE OF ADMISSION: 09/17/19 ATTENDING PHYSICIAN WHILE IN THE HOSPITAL: Dr. Josef Irwin * (dictated by JENNIFER Vaughn). PRIMARY CARE PROVIDER: Dr. Ferrer. CHIEF COMPLAINT: Intermittent episodes of chest pain with shortness of breath on exertion. HISTORY OF PRESENT ILLNESS: Marie Haro is a 64-year-old white female with past medical history significant for hypertension, hyperlipidemia, obesity, osteoarthritis, and chronic constipation, who presents to the emergency department upon direction of her primary care provider after a visit in the office today. The patient has been having ongoing nonspecific complaints for the last 2 to 3 months. She has been having chronic constipation and fatigue for the last 2 months. She notes shortness of breath when exerting herself for the past 2 to 3 months, but is unable to specify the distance, in which she starts feeling exertion and is not every time she exerts herself. She notes specifically that when she is walking around the grocery store, she starts to feel short of breath. She has been having intermittent chest pain in her central chest that feels like a pressure. She tells me there is no pattern to this. It was not present initially, though she tells me that it came and went in less than 1 minute during our talk pattern. She does not notice any pattern specifically with exertion, rest, or specifically after eating any foods. These episodes usually last for several minutes and going on their own without any changes. EMERGENCY DEPARTMENT COURSE: When the patient arrived at the emergency department, her vital signs were temperature 97.1, heart rate 118, respiratory rate 18, oxygen saturation 99% on room air, blood pressure 184/97. The patient had a negative troponin in the emergency department and given her HEART score of 5 and her presenting symptoms, hospitalists were asked to evaluate the patient for admission. PAST MEDICAL HISTORY: 1. Hypertension. 2. Hyperlipidemia. 3. Obesity. 4. Osteoarthritis. 5. Chronic constipation. PAST SURGICAL HISTORY: 1. x4. 2. Partial hysterectomy (the patient still has her left ovary). 3. Cholecystectomy. 4. Tubal ligation. 5. Right wrist surgery. HOME MEDICATIONS: 1. Lisinopril/hydrochlorothiazide 10 mg/12.5 mg 1 tab p.o. daily. 2. Ibuprofen 200 mg p.o. b.i.d. p.r.n. pain. 3. Ibuprofen 800 mg p.o. b.i.d. with meals. ALLERGIES: Headache to METHYLPREDNISOLONE. FAMILY HISTORY: The patient is adopted and her family history is unknown. SOCIAL HISTORY: The patient lives alone. She has 4 adult children and lives with 2 dogs. She is a . 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 She quit smoking 6 years ago and prior to that smoked for approximately 18 to 20 years of 1-pack per day. The patient denies illicit drug use and alcohol use. The patient's surrogate medical decision maker is her daughter, Josefina Zayas, her phone number is [phone]. PHYSICAL EXAMINATION GENERAL: Obese white female, lying upright in hospital bed, appearing comfortable, in no acute distress, appearing minimally flushed on her neck and her upper back. HEENT: Eyes: PERRL. Sclerae anicteric. ENT: Mucous membranes moist. NECK: Supple. Tenderness to palpation reproducible in bilateral lateral aspect of neck consistent with region of sternocleidomastoid. LUNGS: Clear to auscultation throughout. CARDIO: Regular rate and rhythm without murmurs, rubs, or gallops. Tenderness to palpation in anterior chest in approximately fourth to fifth intercostal space bilaterally along the sternum. ABDOMEN: Normoactive bowel sounds x4 quadrants. Abdomen is soft, nontender, and nondistended. EXTREMITIES: No clubbing, cyanosis, or edema. NEURO: The patient is alert and oriented x3. Able to move all extremities. Answers questions appropriately. SKIN: Warm, dry and intact. DIAGNOSTIC STUDIES/LAB DATA: White blood cell count 11.2, hemoglobin 16.9, hematocrit 4.9, platelet count 264. INR 1.11. Sodium 134, potassium 4.1, chloride 98, carbon dioxide 29, anion gap 7, BUN 20, creatinine 0.97, glucose 174, calcium 10.4. LFTs unremarkable. Troponin 0.00. BNP 19. Chest x-ray, impression: No acute cardiopulmonary process by radiograph. EKG: Approximately [address] depressions in V4 and V5, isolated T-wave inversion in V1. These ST depressions are new since EKG prior in 2014. Otherwise, sinus tachycardia at a rate of 109 beats per minute. ASSESSMENT AND PLAN: Marie Haro is a 64-year-old white female with past medical history significant for hypertension, hyperlipidemia, who presents to the emergency department today for ongoing intermittent chest pain and shortness of breath with exertion for the last several months. The patient will be admitted OBV for: 1. Intermittent chest pain. The patient additionally is presenting with some neck pain, which does give me some concern for anginal symptoms. The patient's initial troponin is negative and I will continue to trend this and repeat EKGs with each troponin. Her initial EKG does show some new EKG findings with ST depressions in the septal leads and as previously mentioned, I will continue to trend these with the troponins. The patient will have an exercise nuclear stress test tomorrow morning. Additionally given that she is tachycardic with this shortness of breath on exertion, I am concerned for possible pulmonary embolism. The patient will have a stat D-dimer and if this D-dimer is elevated , she will go on to have a CT angiogram of the chest. Lactic acid is pending at the time of evaluation as well. 2. Systemic inflammatory response syndrome criteria. The patient has systemic inflammatory response syndrome criteria for leukocytosis and tachycardia. Order fluids to see if this improves, her tachycardia. She may be somewhat dehydrated, and blood cultures will be ordered as well. I have a low suspicion for acute infection at this time; however, urinalysis is pending and rapid influenza, though I have very low suspicion for influenza at this time. If her tachycardia does not improve with fluids, then perhaps empiric antibiotics may be of benefit, though given that there are no signs of acute infection at this time, I will hold off and this can be reevaluated later with further data. 3. Hypertension. The patient is hypertensive in the emergency department and this may be contributing her intermittent chest pain. I will give her an additional dose of lisinopril now in the emergency department. I will continue her normal home medications and perhaps these should be increased tomorrow as well. 4. Hyperlipidemia. It does not appear that the patient takes a statin. I will order fasting LDL and hemoglobin A1c for tomorrow morning. 5. DVT prophylaxis: The patient has a DVT risk score of 2. I will order Lovenox as DVT prophylaxis. 6. Code status: The patient is full code. 7. FEN: The patient may have a regular unrestricted diet. She will be n.p.o. after midnight except for medications for a stress test. The patient will be receiving 3400 mL IV normal saline bolus. TIME SPENT: Approximately 50 minutes was spent on this admission, approximately half this time was spent at the bedside evaluating the patient and discussing the plan of care. This case has been reviewed with my attending Dr. Josef Irwin, and he agrees with the plan of care. JENNIFER VAUGHN [id number]/[facility] #: [id number] ROBERT
[2019-09-18 00:19] LABS: Urine Appearance Clear; Urine Bilirubin Negative (Negative); Urine Blood Negative (Negative); Urine Color Straw; Urine Glucose Negative (Negative); Urine Ketones Negative (Negative); Urine Nitrite Negative (Negative); Urine Protein Negative (Negative); Urine Specific Gravity 1.009 (1.010-1.030); Urine Urobilinogen Negative (Negative)
[2019-09-18 00:30] LABS: Urine Bacteria 1+ (Absent); Urine Red Blood Cell Trace(0-2/hpf) (Absent); Urine Squamous Epithelial Cell Present (Absent); Urine White Blood Cell Trace(0-5/hpf) (Absent)
[2019-09-18 01:08] LABS: Influenza A Molecular Negative (Negative); Influenza B Molecular Negative (Negative)
[2019-09-18 08:20] VITALS: BP 137/83
[2019-09-18] MEDS ORDERED: Lisinopril TAB* 10 MG PO SCH (09:00)
[2019-09-18] MEDS ORDERED: Hydrochlorothiazide TAB* 25 MG PO SCH (09:00)
[2019-09-18] MEDS: Senna TAB 8.6 mg* TAB PO SCH (10:23)
--- NOTE | 2019-09-18 13:16 | ECHO ---
*[facility]* [place] [address] Fax #: [phone] Transthoracic Echocardiogram Patient: Marie Haro : 1955 Study Date: 09/18/2019 Age: 64 Gender: F HR: 104 bpm Height: 62 in /157.5 cm BSA: 2.31 m^2 Weight: 251.5 lb /114.3 kg BMI: 46.1 kg/m^2 *Support Specialist: * Claudia Carrillo [facility] *Referring Physician: * O'Selam Castro *Reading Physician: * Sotero Cruz MD Indications: SOB. History: Risk factors: Former tobacco use. Hypertension. Dyslipidemia. Conclusions Summary: - Left ventricle: Systolic function is normal. The estimated ejection fraction is 50-55%. Wall motion is normal; there are no regional wall motion abnormalities. - Mitral valve: There is no significant regurgitation. - Aortic valve: There is no evidence of stenosis. - Tricuspid valve: There is no significant regurgitation. - Pulmonary arteries: Systolic pressure can not be accurately estimated. - Study data: No prior study is available for comparison. Study data: Transthoracic echocardiogram. Procedure: Transthoracic echocardiography was performed. Image quality was fair. Complete 2D, spectral Doppler, and color flow Doppler. Location: Procedure room. Patient status: Inpatient. Patient room number: 441 01. No prior study is available for comparison. Rhythm: Normal sinus rhythm. Findings Left ventricle: The cavity size is normal. Wall thickness is mildly increased. Systolic function is normal. The estimated ejection fraction is 50-55%. Wall motion is normal; there are no regional wall motion abnormalities. Left ventricular diastolic function parameters are indeterminate. Right ventricle: The cavity size is normal. Systolic function is normal. Left atrium: The atrium is normal in size. Right atrium: The atrium is normal in size. Mitral valve: The Mitral valve annulus appears mildly calcified. The leaflets are normal thickness. There is no evidence of stenosis. There is no significant regurgitation. Aortic valve: The valve is trileaflet. The leaflets are normal thickness. There is no evidence of stenosis. There is trace regurgitation. Tricuspid valve: The leaflets are normal thickness. There is no evidence of stenosis. There is no significant regurgitation. Pulmonic valve: Not well visualized. There is no significant regurgitation. Aorta: The aortic root appears normal. The aortic arch appears normal. Pericardium: There is no significant pericardial effusion. Pulmonary arteries: Systolic pressure can not be accurately estimated. Systemic veins: Inferior vena cava: The vessel is normal in size. There is (>= 50%) respiratory change in the IVC dimension. Measurements Left ventricle Value Ref Aortic valve Value Ref MOI, LAX (L) 3.4 cm 3.8 - 5.2 Tad diam, ED 2.0 cm ---- ESD, LAX 2.7 cm 2.2 - 3.5 Tad diam/bsa, ED 0.9 cm/m^2 ---- FS, LAX (L) 21 % 27 - 45 Peak v, S 1.2 m/sec ---- PW, ED, LAX (H) 1.0 cm 0.6 - 0.9 VTI, S 22.9 cm ---- E', lat tad, TDI (L) 9.3 cm/sec >=10.0 Mean grad, S 3.6 mm Hg ---- E/e', lat tad, 5 Peak grad, S 5.7 mm Hg -- -- TDI Mitral valve Value Ref LVOT Value Ref Peak E 0.5 m/sec ---- Peak dulce, S 0.8 m/sec Peak A 0.95 m/sec ---- VTI, S 17.1 cm Decel time 70 ms ---- Peak grad, S 3 mm Hg Peak E/A ratio 0.53 ---- Mean grad, S 1 mm Hg Aortic root Value Ref Ventricular septum Value Ref Root diam 3.4 cm <4.4 IVS, ED (H) 1.2 cm 0.6 - 0.9 Ascending aorta Value Ref Right ventricle Value Ref AAo AP diam, S 3.3 cm ---- MOI, LAX 2.3 cm AAo AP diam/bsa, S 1.4 cm/m^2 ---- MOI major ax, A4C (L) 2.3 cm 5.9 - 8.3 Aortic arch Value Ref Left atrium Value Ref Arch diam 2.8 cm ---- AP dim, ES (L) 2.40 cm 2.70 - 3.80 Decending aorta Value Ref ML dim, A4C 3.4 cm Tabitha peak dulce 0.57 m/sec ---- SI dim, A4C 4.1 cm Vol/bsa, ES, 2-p 17 ml/m^2 16 - 34 Inferior vena cava Value Ref Diam 1.4 cm ---- Right atrium Value Ref SI dim, ES 4.3 cm 3.4 - 5.3 ML dim, ES, A4C 2.6 cm 2.6 - 4.4 Estimated RAP 8 mm Hg Legend: (L) and (H) safia values outside specified reference range. Prepared and electronically signed by Sotero Cruz MD 09/18/2019 12:22
--- NOTE | 2019-09-18 21:58 | DS ---
CC: Dr. Ferrer * DISCHARGE SUMMARY: DATE OF ADMISSION: 09/17/19 DATE OF DISCHARGE: 09/18/19 PROVIDER: JENNIFER Vaughn ATTENDING PHYSICIAN WHILE IN THE HOSPITAL: Dr. Moulton * (dictated by JENNIFER Vaughn). PRIMARY CARE PROVIDER: Dr. Ferrer. PRIMARY DIAGNOSES: 1. Diabetes mellitus, type 2. 2. Chest pain of unclear etiology, possibly related to musculoskeletal and related to body habitus. SECONDARY DIAGNOSES: 1. Hyperlipidemia. 2. Hypertension. 3. Obesity. 4. Osteoarthritis. 5. Chronic constipation. PERTINENT STUDIES WHILE IN THE HOSPITAL: The patient had a stress test on day of discharge. The exercise portion was nondiagnostic due to the patient's poor exercise tolerance and the nuclear medicine scan was low risk. Transthoracic echocardiogram on 09/18/19 with EF of 50% to 55%. Wall motion is normal. No regional wall motion abnormalities. Overall, no valvular abnormalities. Please see full report for more details. Chest x-ray on 09/17/19, impression: No acute cardiopulmonary process. SIGNIFICANT STUDIES WHILE IN THE HOSPITAL: Hemoglobin A1c 7.9. LDL 113. Troponin 0.00 x3 readings. HISTORY OF PRESENT ILLNESS/HOSPITAL COURSE: Marie Haro is a 64-year-old white female, who presented to the emergency department under the direction of her primary care provider after complaints of intermittent chest pain and intermittent dyspnea on exertion with nonspecific EKG findings in her outpatient appointment. The patient is admitted to the hospitalist service on . Please see further details regarding this admission and the history and physical written by myself. The patient was monitored on telemetry during her hospitalization and admitted for a stress test and echocardiogram to evaluate for any cardiac etiologies to her presenting symptoms. She did have some subtle EKG changes of ST depressions in V4, V5 which were later resolved on repeat EKG which were of concern; however, her stress test and echocardiogram were overall without any acute findings and her telemetry did not show any arrhythmias. She did have an LDL that was significantly elevated and her hemoglobin A1c confirmed a new diagnosis of diabetes mellitus, type 2, which could explain her ongoing feeling of fatigue and diaphoresis at times. She was seen in consultation by the nutrition service for further education regarding her diabetes diagnosis and dietary changes, which have been made. She additionally was ruled out for a pulmonary embolism as the D-dimer was negative in the hospital. I do believe that her chest pain was reproducible on exam at admission and again on day of discharge. PHYSICAL EXAM ON DAY OF DISCHARGE: General: Obese white female, lying upright in bed, appearing comfortable, in no acute distress. Cardio: Regular rate and rhythm without murmurs, rubs, or gallops. Lungs: Clear to auscultation throughout. Abdomen: Soft, nontender, nondistended. Extremities: No clubbing , cyanosis, or edema. Skin: Warm, dry, and intact. Neuro: The patient is alert and oriented x3. DISCHARGE PLAN: The patient is to follow up with Dr. Ferrer in 1 week. At this time, repeat CBC should be completed to see if she does have continued leukocytosis. She does have additionally minimally elevated H and H. I am wondering if this is perhaps secondary to undiagnosed JANET and she does have chronic fatigue and perhaps benefit from an outpatient sleep study. She should have a repeat hemoglobin A1c in the outpatient setting. She is advised to start metformin with 500 mg dose initially once a day and to increase 500 mg b.i.d. as she is able to tolerate based on GI symptoms. She is advised to please return to the emergency department if she is experiencing chest pain and difficulty breathing if they do not improve in approximately a minute as they have in the past, severe abdominal pain, blood glucose of over 500 or blood glucose less than 50, loss of consciousness. The patient was educated regarding some signs and symptoms of hyperglycemia and hypoglycemia, and she was advised to check fingerstick and was provided prescription for glucose monitoring kit. Likely this patient would benefit from starting statin therapy considering her new risk factor for diabetes and her LDL of over 100; however, this can be discussed further in outpatient setting. DISCHARGE MEDICATIONS: New medications: 1. Metformin 500 mg p.o. b.i.d. Continued home medications: 1. Lisinopril/hydrochlorothiazide 10/12.5 mg 1 tab p.o. daily. 2. Ibuprofen 800 mg p.o. b.i.d. with meals. 3. Ibuprofen 200 mg p.o. b.i.d. p.r.n. pain. CONDITION ON DISCHARGE: Stable. DISPOSITION: Home. TIME SPENT: Approximately 40 minutes was spent on this discharge, approximately half of this time was spent at bedside evaluating the patient and discussing the plan of care. JENNIFER VAUGHN [id number]/[facility] #: [id number] [facility]
== END 2019-09-18 14:20 | disposition home or self-care (01) ==
LOC: ED 17:20 → MEDTELE 21:13
PROVIDERS: ADMIT Physician Assistant; ATTEND Internal Medicine
DX: E11.9 Type 2 diabetes mellitus without complications (principal); R07.9 Chest pain, unspecified; E78.5 Hyperlipidemia, unspecified; I10 Essential (primary) hypertension; E66.9 Obesity, unspecified; R06.02 Shortness of breath; R53.83 Other fatigue; M19.90 Unspecified osteoarthritis, unspecified site; K59.09 Other constipation; Z85.828 Personal history of other malignant neoplasm of skin; Z87.891 Personal history of nicotine dependence; Z79.84 Long term (current) use of oral hypoglycemic drugs
CPT/HCPCS: 36415; 71046; 78452; 80053; 81003; 81015; 83036; 83605; 83721; 83880; 84484; 85025; 85379; 85610; 87040; 87086; 93005; 93017; 93306; 96372; 99284; A9270-GY; A9502; G0378; J1650